=== PATIENT | male | born 1975 | race Caucasian/White ===

== ENCOUNTER 2020-08-01 08:57 | Emergency (ER) | payer MEDICAID, SELFPAY ==
[2020-08-01 09:03] VITALS: BP 95/66; PULSE 100; RESP 16; TEMP 36.8; O2SAT 96; BMI 28.5
--- NOTE | 2020-08-01 09:11 | PC.NURSE ---
pt now states he has pain to bilateral wrists and back of neck 04/10. Abrasions present on bilateral wrists. provider aware.
--- NOTE | 2020-08-01 09:13 | XR_ITS ---
EXAMINATION: XR CERVICAL SPINE CLINICAL INFORMATION: Trauma pain COMPARISON: None TECHNIQUE: 3 views of the cervical spine were obtained. FINDINGS: The lower cervical spine below the level of C6-C7 is obscured by overlying soft tissues of. Otherwise the vertebral bodies are normally aligned without fracture subluxation or dislocation or degenerative change. The surrounding soft tissues are normal. XR/XR cervical spine 3V IMPRESSION: Limited evaluation of the cervical spine for trauma. The lower cervical spine is obscured by overlying soft tissues. Consider repeat swimmer's lateral view to clear the lower cervical spine CT otherwise unremarkable
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
--- NOTE | 2020-08-01 09:39 | MHC.CARE ---
CARE Team spoke with Makeda about therapy treatment and detox services. He declined any services and refused to continue conversation about further treatment. He stated Just give the paper and leave walk out of the room.
--- NOTE | 2020-08-01 10:00 | PC.NURSE ---
Applied antibiotic ointment and bandages to open area on patient's right wrist.
== END 2020-08-01 10:06 | disposition home or self-care (01) ==
PROVIDERS: Emergency Provider Emergency Medicine
DX: S16.1XXA Strain of muscle, fascia and tendon at neck level, initial encounter (principal); S10.91XA Abrasion of unspecified part of neck, initial encounter; F14.10 Cocaine abuse, uncomplicated; F11.10 Opioid abuse, uncomplicated; X58.XXXA Exposure to other specified factors, initial encounter; Y93.9 Activity, unspecified; Y92.9 Unspecified place or not applicable; Y99.9 Unspecified external cause status; F17.200 Nicotine dependence, unspecified, uncomplicated; Z71.6 Tobacco abuse counseling; Z71.51 Drug abuse counseling and surveillance of drug abuser
CPT/HCPCS: 72040; 99283

== ENCOUNTER 2021-04-09 19:56 | Inpatient (IN) | payer OTHER, SELFPAY ==
[2021-04-09 21:02] VITALS: BMI 28.0
--- NOTE | 2021-04-09 21:57 | PC.ADMIT ---
Pt is a 45 year old male who presents to from [facility] ED at approx 20:09 on a CV status. Pt is covid - Utox+ for cocaine, THC, Heroin, fentanyl. Pt presents with suicidal ideation reporting i do drugs everyday until i Pt reports AH and reports voices are from a past relationship with girlfriend. Pt denied any outpt support services. Pt was transferred from [facility] to [facility]. Pt was evaluated by [facility]. Pt reported experiencing symptoms of depression and anxiety for a long time. Pt reported ongoing drug use and stated he did one bundle of heroin in the form of snorting, just last night. Pt reported using crack/cocaine four days ago. Dr. florez called for orders of admission.
[2021-04-10] MEDS: chlorproMAZINE HCl 100 MG TABLET PO (09:22)
--- NOTE | 2021-04-10 09:50 | HO.PSYADMNOT ---
HPI Chief Complaint: Bipolar Sources of Information: patient interviewed, chart reviewed and crisis/core team assessment reviewed HPI Subjective Notes: Orta Warning and Conditional Voluntary Narrative: Patient is a 45-year-old male with history of psychotic illness and substance abuse who presents for auditory hallucinations, moderate manic symptoms and is also in need of detox from opiates. Patient signed CV. Manager Motor knows patient from previous admissions. Patient is with moderately pressured speech but interruptible; he is intermittently irritable but also cooperative. He reports he has been off his medication for quite some time, he is not sure how long. He says about a month ago he got out of senior care. He denies any SI or HI. He does report auditory hallucinations and tries to explain it saying it comes from up there... [looks upward]... Not voices but it is a forced speech like God talking. it's hard to explain. During interview, patient intermittently looks aside to respond to internal stimuli, mumbling something under his breath; when done, he re-attends to the conversation. Patient has been using opiates but he is not sure how much. He would like methadone to help with withdrawal symptoms and will consider whether or not to get on it for maintenance medication. He says he was drinking over the past few weeks, but he is not exactly sure how much. He says it has been 2 days since his last drank any denies withdrawal symptoms and does not think he will get them. Patient tells travel writer he would like Thorazine 50 mg in the morning, Thorazine 200 mg at bedtime, trazodone at bedtime, Wellbutrin twice a day and does not want Trileptal. From past admissions, this medication regimen sounds pretty typical. Pharmacy did med reconciliation and found this regimen to be fairly close; apparently he was also getting gabapentin while in senior care, but patient did not ask for it and travel writer will not restart this medication now. Past Psychiatric History: Long history of psychiatric inpatient admissions History of detox from substance abuse Medical Evaluation Reviewed: Yes [facility] Medical History (Updated 04/11/21 @ 11:30 by Rome Wood MD) Alcohol abuse Opiate abuse, episodic Schizoaffective disorder, bipolar type Family History: Deferred for now Social History: Deferred for now Substance History: History of opioid and alcohol use Trauma History: Deferred for now Diagnostics Vital Signs (24Hr): Body Mass Index 28.0 Labs Labs: Medications from admitting hospital reviewed as was EKG which were grossly within normal limits. Meds/Allergies Meds Home Medications Acetaminophen (Acetaminophen 325 Mg Tablet) 650 mg PO Q6H PRN PRN Reason: Headache/Pain Mild Scale (1-3) Al Hydroxide/Mg Hydroxide (Magnesium Hydrox/Alum Hydrox 30 Ml Oral.Susp) 30 ml PO Q6H PRN PRN Reason: Heartburn/Nausea Bupropion HCl (Bupropion Hcl 100 Mg Tablet) 100 mg PO BID@0830,1430 [facility] Last Admin: 04/11/21 08:09 Dose: 100 mg Documented by: Chlorpromazine HCl (Chlorpromazine Hcl 25 Mg Tablet) 50 mg PO TID PRN PRN Reason: anxiety/agitation Chlorpromazine HCl (Chlorpromazine Hcl 25 Mg Tablet) 50 mg PO DAILY [facility] Last Admin: 04/11/21 09:59 Dose: 50 mg Documented by: Chlorpromazine HCl (Chlorpromazine Hcl 100 Mg Tablet) 200 mg PO BEDTIME [facility] Last Admin: 04/10/21 20:06 Dose: 200 mg Documented by: Lorazepam (Lorazepam 1 Mg Tablet) 1 mg PO TID [facility] Stop: 04/11/21 23:59 Last Admin: 04/11/21 11:08 Dose: 1 mg Documented by: Lorazepam (Lorazepam 1 Mg Tablet) 1 mg PO BID [facility] Stop: 04/13/21 23:59 Lorazepam (Lorazepam 1 Mg Tablet) 1 mg PO DAILY [facility] Stop: 04/14/21 23:59 Magnesium Hydroxide (Milk Of Magnesia 30 Ml Oral.Susp) 30 ml PO DAILY PRN PRN Reason: Constipation Methadone HCl (Methadone Hcl 5 Mg Tablet) 5 mg PO ONCE ONE Stop: 04/11/21 14:01 Methadone HCl (Methadone Hcl 1 Mg/0.1 Ml Oral.Conc) 15 mg PO ONCE ONE Stop: 04/12/21 09:01 Methadone HCl (Methadone Hcl 1 Mg/0.1 Ml Oral.Conc) 10 mg PO ONCE ONE Stop: 04/13/21 09:01 Methadone HCl (Methadone Hcl 5 Mg Tablet) 5 mg PO ONCE ONE Stop: 04/14/21 09:01 Naloxone HCl (Naloxone Hcl Nasal Take Home 4 Mg [place]) 4 mg NOSTRILALT ONCE ONE Stop: 04/12/21 09:01 Nicotine (Nicotine 21 Mg Patch.Td24) 21 mg TRANSDERMA DAILY PRN PRN Reason: nicotine cessation Nicotine Polacrilex (Nicotine Polacrilex 2 Mg Gum) 4 mg BUCCAL Q2H PRN PRN Reason: Nicotine Cravings Last Admin: 04/11/21 10:20 Dose: 4 mg Documented by: Pharmacy Consult (Consult Rx Perform Med Rec) 1 each MISCELLANE ONCE AMOR Trazodone HCl (Trazodone Hcl 50 Mg Tablet) 50 mg PO BEDTIME AMOR Last Admin: 04/10/21 20:06 Dose: 50 mg Documented by: Trazodone HCl (Trazodone Hcl 50 Mg Tablet) 50 mg PO BEDTIME PRN PRN Reason: continued insomnia Allergies Allergies Allergy/AdvReac Type Severity Reaction Status Date / Time cat dander [CATS] Allergy Unknown UNKNOWN Unverified 06/18/20 19:53 haloperidol [From HALDOL] Allergy Unknown UNKNOWN Unverified 06/18/20 19:53 olanzapine [From ZYPREXA] Allergy Unknown UNKNOWN Unverified 06/18/20 19:53 Penicillins [PENICILLINS] Allergy Unknown UNKNOWN Unverified 06/18/20 19:53 Mental Status Exam Mental Status Exam Narrative: Pt is alert and oriented; behavior is cooperative, friendly, but also irritable; patient is not in distress; dressed in casual attire with adequate hygiene; mood is described as good affect a intense, constricted, irritable, sometimes scowling; eye contact appropriate; Speech is moderately pressured, but normal volume and prosody; some mild psychomotor agitation; thought process is organized and goal directed. Thought content is on treatment and otherwise pertinent to relevant topics and without any delusional content, paranoid ideations or grandiosity expressed or able to be solicited; denies any SI/HI. Intermittent Self-dialoging ant internally preoccupied; he reports AH; Patients insight and judgment appear intact. Assessment & Plan Assessment & Plan (1) Schizoaffective disorder, bipolar type: Status: Acute Code(s): F25.0 - Schizoaffective disorder, bipolar type (2) Opiate abuse, episodic: Status: Acute Code(s): F11.10 - Opioid abuse, uncomplicated (3) Alcohol abuse: Status: Acute Code(s): F10.10 - Alcohol abuse, uncomplicated Assessment and Plan: IMPRESSION: Patient is a 45-year-old male with history of psychotic illness and substance abuse who presents for auditory hallucinations, moderate manic symptoms and is also in need of detox from opiates. Patient signed CV. Patient presents with moderate manic symptoms, pressured speech, having not slept in days to weeks, relapsing with opiates and alcohol. Currently denies any SI or HI but is clearly having intrusive psychotic symptoms of auditory hallucinations. Patient also in need of detox and will start him on methadone taper. 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 Reports recent alcohol abuse but not sure how much and denies alcohol symptoms. Will monitor this and consider Ativan taper. Will restart medications the patient has been on in the past. PLAN: Admit for treatment for psychotic symptoms and withdrawal Patient on CV Q 15 minutes checks for safety Will start methadone taper, consulted with Kathy Mendoza for recommendations Start Thorazine 50 in the morning Start Thorazine 200 mg at bedtime Add Thorazine 50 mg p.r.n. Start Wellbutrin 100 mg b.i.d. Trazodone 50 mg with repeat Patient does not want Trileptal which will not be restarted; he was on gabapentin while in senior care but is not asking for now and travel writer will not started as this medication is problematic when combined with substance abuse Patient educated on: diagnosis Informed Consent: understands Reason for continued inpatient stay Substantial Risk for: rapid decompensation
[2021-04-10] MEDS: Nicotine Polacrilex 2 MG GUM 4 MG BUCCAL ×4 (10:10→20:00)
[2021-04-10] MEDS: buPROPion HCL 100 MG TABLET PO ×2 (10:59→14:32)
[2021-04-10 15:50] VITALS: BP 129/80; PULSE 85; TEMP 36.6
[2021-04-10] MEDS: chlorproMAZINE HCl 100 MG TABLET 200 MG PO (20:06)
[2021-04-10] MEDS: traZODone HCL 50 MG TABLET PO (20:06)
--- NOTE | 2021-04-11 | ECG_ITS ---
Test Reason : QTc monitoring Blood Pressure : / mmHG Vent. Rate : 060 BPM Atrial Rate : 060 BPM P-R Int : 134 ms QRS Dur : 088 ms QT Int : 424 ms P-R-T Axes : 061 042 032 degrees QTc Int : 424 ms Sinus rhythm with marked sinus arrhythmia Otherwise normal ECG No previous ECGs available Referred By: Rome Wood Electronically Signed By:Kwabena Rossi
[2021-04-11] MEDS: buPROPion HCL 100 MG TABLET PO ×2 (08:09→14:05)
[2021-04-11 09:00] VITALS: BP 128/84; PULSE 108; RESP 18; TEMP 36.5; O2SAT 99
[2021-04-11] MEDS: chlorproMAZINE HCl 25 MG TABLET 50 MG PO (09:59)
[2021-04-11] MEDS: Nicotine Polacrilex 2 MG GUM 4 MG BUCCAL ×3 (10:20→16:31)
--- NOTE | 2021-04-11 11:07 | P.PNPSI_ITS ---
Subjective Subjective Date of Service: 04/11/21 Reason For Visit: Bipolar Interim History: Patient up and about this morning. He said he slept well last night and that the methadone is helping withdrawal but would like another 5 mg today and start 15 mg tomorrow to which selling underwriter agreed; patient said he did not think he would have any alcohol withdrawal symptoms but says he is feeling it somewhat and could he have Ativan, again selling underwriter agreed to start a taper. Otherwise patient feels his medication regimen is adequate and does not want other changes at this time. He denies any SI or HI. During brief lapses in the conversation, patient looked aside to attend to a self dialogue as he is intermittently internally preoccupied. Patient is ambivalent about his goals, sometimes saying he wants to leave soon, other times saying he wants a program. He is also continuing to debate whether not he wants to get on methadone continually. Staff reports patient intermittently irritable, but overall in appropriate behavioral control. denies med side effects Though cooperative, patient seems only to tolerate discussion on topics he is interested in; as he remains intermittently irritable and in withdrawal, selling underwriter did not further review patient's psychiatric history but will defer that to primary team and when patient is feeling a little more calm and stable Mental Status Exam Mental Status Exam Narrative: Pt is alert and oriented; behavior is cooperative, friendly; patient is not in distress; dressed in casual attire with adequate hygiene; mood is described as good affect a little intense, constricted; eye contact appropriate; Speech is moderately pressured, but normal volume and prosody; some mild psychomotor agitation; thought process is organized, and goal directed. Thought content is on treatment and otherwise pertinent to relevant topics and without any delusional content, paranoid ideations or grandiosity expressed or able to be solicited; denies any SI/HI. Intermittent Self-dialoging, internally preoccupied; he reports AH; Patients insight and judgment appear intact. Diagnostics Vital Signs (24Hr): Vital Signs - 24 hr 04/10/21 15:50 Temperature 97.9 F Pulse Rate 85 Blood Pressure 129/80 Body Mass Index 28.0 Medications Medications Current Medications Generic Name Dose Route Start Last Admin Trade Name Freq PRN Reason Stop Dose Admin Acetaminophen 650 mg 04/09/21 21:39 Acetaminophen 325 Mg Tablet PO Q6H PRN Headache/Pain Mild Scale (1-3) Al Hydroxide/Mg Hydroxide 30 ml 04/09/21 21:39 Magnesium Hydrox/Alum Hydrox 30 Ml Oral.Susp PO Q6H PRN Heartburn/Nausea Bupropion HCl 100 mg 04/10/21 10:08 04/11/21 08:09 Bupropion Hcl 100 Mg Tablet PO 100 mg BID@0830,1430 AMOR Administration Chlorpromazine HCl 50 mg 04/09/21 21:39 Chlorpromazine Hcl 25 Mg Tablet PO TID PRN anxiety/agitation Chlorpromazine HCl 50 mg 04/11/21 09:00 04/11/21 09:59 Chlorpromazine Hcl 25 Mg Tablet PO 50 mg DAILY AMOR Administration Chlorpromazine HCl 200 mg 04/10/21 21:00 04/10/21 20:06 Chlorpromazine Hcl 100 Mg Tablet PO 200 mg BEDTIME AMOR Administration Lorazepam 1 mg 04/11/21 10:55 Lorazepam 1 Mg Tablet PO 04/11/21 23:59 TID AMOR Lorazepam 1 mg 04/12/21 09:00 Lorazepam 1 Mg Tablet PO 04/13/21 23:59 BID AMOR Lorazepam 1 mg 04/14/21 09:00 Lorazepam 1 Mg Tablet PO 04/14/21 23:59 DAILY [facility] Magnesium Hydroxide 30 ml 04/09/21 21:39 Milk Of Magnesia 30 Ml Oral.Susp PO DAILY PRN Constipation Methadone HCl 5 mg 04/11/21 14:00 Methadone Hcl 5 Mg Tablet PO 04/11/21 14:01 ONCE ONE Methadone HCl 15 mg 04/12/21 09:00 Methadone Hcl 1 Mg/0.1 Ml Oral.Conc PO 04/12/21 23:59 DAILY [facility] Methadone HCl 10 mg 04/13/21 09:00 Methadone Hcl 10 Mg Tablet PO 04/13/21 23:59 DAILY [facility] Methadone HCl 5 mg 04/14/21 09:00 Methadone Hcl 5 Mg Tablet PO 04/14/21 23:59 DAILY AMOR Naloxone HCl 4 mg 04/12/21 09:00 Naloxone Hcl Nasal Take Home 4 Mg [place] NOSTRILALT 04/12/21 09:01 ONCE ONE Nicotine 21 mg 04/09/21 21:39 Nicotine 21 Mg Patch.Td24 TRANSDERMA DAILY PRN nicotine cessation Nicotine Polacrilex 4 mg 04/09/21 21:39 04/11/21 10:20 Nicotine Polacrilex 2 Mg Gum BUCCAL 4 mg Q2H PRN Administration Nicotine Cravings Pharmacy Consult 1 each 04/09/21 21:45 Consult Rx Perform Med Rec MISCELLANE ONCE AMOR Trazodone HCl 50 mg 04/10/21 21:00 04/10/21 20:06 Trazodone Hcl 50 Mg Tablet PO 50 mg BEDTIME AMOR Administration Trazodone HCl 50 mg 04/10/21 10:10 Trazodone Hcl 50 Mg Tablet PO BEDTIME PRN continued insomnia Allergies Allergies Allergy/AdvReac Type Severity Reaction Status Date / Time cat dander [CATS] Allergy Unknown UNKNOWN Unverified 06/18/20 19:53 haloperidol [From HALDOL] Allergy Unknown UNKNOWN Unverified 06/18/20 19:53 olanzapine [From ZYPREXA] Allergy Unknown UNKNOWN Unverified 06/18/20 19:53 Penicillins [PENICILLINS] Allergy Unknown UNKNOWN Unverified 06/18/20 19:53 Assessment & Plan Assessment & Plan (1) Alcohol abuse: Status: Acute Code(s): F10.10 - Alcohol abuse, uncomplicated (2) Opiate abuse, episodic: Status: Acute Code(s): F11.10 - Opioid abuse, uncomplicated (3) Schizoaffective disorder, bipolar type: Status: Acute Code(s): F25.0 - Schizoaffective disorder, bipolar type Assessment and Plan: IMPRESSION: Patient is a 45-year-old male with history of psychotic illness and substance abuse who presents for auditory hallucinations, moderate manic symptoms and is also in need of detox from opiates. Patient signed CV. Patient presents with moderate manic symptoms, pressured speech, having not slept in days to weeks, relapsing with opiates and alcohol. Currently denies any SI or HI but is clearly having intrusive psychotic symptoms of auditory hallucinations. Patient also in need of detox and will start him on methadone taper. 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 Reports recent alcohol abuse but not sure how much and denies alcohol symptoms. Will monitor this and consider Ativan taper. Restarted medications the patient has been on in the past. Patient reports he feels some alcohol withdrawal symptoms and would like Ativan; as patient also has psychotic illness and is withdrawing from opiates, have put in Ativan taper. This will not be continued on discharge PLAN: Admit for treatment for psychotic symptoms and withdrawal Patient on CV Q 15 minutes checks for safety Will get EKG to assess QTC, given on both antipsychotic and methadone ordered labs for monday including HBA1C and lipid panel since pt on antipsycotics Ativan taper for mild alcohol withdrawal symptoms methadone taper, consulted with Kathy Mendoza for recommendations Continue Thorazine 50 in the morning Continue Thorazine 200 mg at bedtime ContinueThorazine 50 mg p.r.n. Continue Wellbutrin 100 mg b.i.d. Trazodone 50 mg with repeat Patient does not want Trileptal which will not be restarted; he was on gabapentin while in [facility] but is not asking for now and selling underwriter will not started as this medication is problematic when combined with substance abuse Greater than 50% of the session was spent on counseling and/or coordination of care Reason for contiued inpatient stay Substantial Risk for: rapid decompensation
[2021-04-11] MEDS: LORazepam 1 MG TABLET PO ×3 (11:08→20:41)
[2021-04-11] MEDS: methADONE HCl 5 MG TABLET PO (14:06)
[2021-04-11] MEDS: Magnesium Hydrox/Alum Hydrox 30 ML ORAL.SUSP PO (15:19)
[2021-04-11 15:50] VITALS: BP 149/93; PULSE 89; TEMP 35.9
[2021-04-11] MEDS: traZODone HCL 50 MG TABLET PO (20:41)
[2021-04-11] MEDS: chlorproMAZINE HCl 100 MG TABLET 200 MG PO (20:41)
[2021-04-12 06:42] VITALS: BP 126/70; PULSE 21; RESP 16; TEMP 36.4; O2SAT 96
[2021-04-12 08:10] LABS: MANUAL DIFF FLAG NO
[2021-04-12 08:12] LABS: Basophils Percent Auto 0.3 % (0-2); Eosinophils Absolute Auto 0.4 X10*3/uL (0.0-0.4); Eosinophils Percent Auto 3.9 % (0-4); Hematocrit 40.8 % (42-52); Hemoglobin 13.2 g/dl (14.0-18.0); Imm Gran Abs Auto 0.03 X10*3/uL (0.00-0.03); Imm Gran Pct Auto 0.3 % (0.0-0.4); Lymphocytes Absolute Auto 2.7 X10*3/uL (1.2-4.9); Mean Corpuscular HGB Conc 32.4 g/dl (31.0-36.0); Mean Corpuscular Hemoglobin 27.7 pg (27.0-33.0); Mean Corpuscular Volume 85.5 fL (80-98); Mean Platelet Volume 9.9 fL (9.4-12.4); Monocytes Absolute Auto 0.9 X10*3/uL (0.1-1.2); Monocytes Percent Auto 9.9 % (2-11); Neutrophils Absolute Auto 4.9 X10*3/uL (2.0-8.3); Neutrophils Percent Auto 55.6 % (45-73); Platelet Count 265 X10*3/uL (160-400); Red Blood Count 4.77 X10*6/uL (4.60-5.80); Red Cell Distribution Width 13.6 % (11.0-16.0); White Blood Count 8.9 X10*3/uL (4.8-10.8)
[2021-04-12] MEDS: Naloxone HCl Nasal TAKE HOME 4 MG SPRAY NOSTRILALT (08:20)
[2021-04-12] MEDS: buPROPion HCL 100 MG TABLET PO ×2 (08:23→14:04)
[2021-04-12] MEDS: chlorproMAZINE HCl 25 MG TABLET 50 MG PO (08:24)
[2021-04-12] MEDS: LORazepam 1 MG TABLET PO ×2 (08:24→20:07)
[2021-04-12] MEDS: Nicotine Polacrilex 2 MG GUM 4 MG BUCCAL ×6 (08:26→21:02)
[2021-04-12 08:52] LABS: Estimated Average Glucose 111 mg/dL; Hemoglobin A1c % 5.5 %
[2021-04-12 09:02] LABS: Cholesterol 152 mg/dL; HDL Cholesterol 53 mg/dL; LDL Cholesterol Calculated 65 mg/dl; Triglycerides 173 mg/dL
--- NOTE | 2021-04-12 15:05 | P.PNPSI_ITS ---
Subjective Subjective Date of Service: 04/12/21 Reason For Visit: Bipolar Interim History: Patient reports that mood is good. no SI or HI: feels detox is being well handled with methadone and Ativan. Still not sure about whether not to get on maintenance medication. Patient says he is eating well and sleeping fine. He says he has keeping himself in control, handling any troublesome thoughts by practicing positive affirmations which he learned at a past program. Pt said talk to you later doc and sped off to cafeteria to eat with peers. Mental Status Exam Mental Status Exam Narrative: Pt is alert and oriented; behavior is cooperative, friendly; patient is not in distress; dressed in casual attire with adequate hygiene; mood is described as good affect a little constricted; eye contact appropriate; Speech remains moderately pressured, but normal volume and prosody; some mild psychomotor agitation; thought process is organized, and goal directed. Thought content is on treatment and otherwise pertinent to relevant topics and without any delusional content, paranoid ideations or grandiosity expressed or able to be solicited; denies any SI/HI. Intermittent Self-dialoguing, internally preoccupied; he reports AH; Patients insight and judgment appear intact. Diagnostics Vital Signs (24Hr): Vital Signs - 24 hr 04/11/21 15:50 04/12/21 06:42 Temperature 96.7 F L 97.6 F Pulse Rate 89 21 L Respiratory Rate 16 Blood Pressure 149/93 H 126/70 Pulse Oximetry 96 Body Mass Index 28.0 Labs Results: 04/12/21 08:00 Labs: Laboratory Results - last 48 hr 04/12/21 04/12/21 04/12/21 08:00 08:00 08:00 WBC 8.9 RBC 4.77 Hgb 13.2 L Hct 40.8 L MCV 85.5 MCH 27.7 MCHC 32.4 RDW 13.6 Plt Count 265 MPV 9.9 Immature Gran % (Auto) 0.3 Neut % (Auto) 55.6 Lymph % (Auto) 30.0 [place] % (Auto) 9.9 Eos % (Auto) 3.9 Baso % (Auto) 0.3 Lymph # (Auto) 2.7 [place] # (Auto) 0.9 Eos # (Auto) 0.4 Baso # (Auto) 0.0 Abs Immat Gran (auto) 0.03 Absolute Neuts (auto) 4.9 Absolute Nucleated RBC 0.000 Nucleated RBC % (auto) 0.0 Estimat Average Glucose 111 Hemoglobin A1c % 5.5 Triglycerides 173 Cholesterol 152 LDL Cholesterol, Calc 65 HDL Cholesterol 53 Medications Medications Current Medications Generic Name Dose Route Start Last Admin Trade Name Freq PRN Reason Stop Dose Admin Acetaminophen 650 mg 04/09/21 21:39 Acetaminophen 325 Mg Tablet PO Q6H PRN Headache/Pain Mild Scale (1-3) Al Hydroxide/Mg Hydroxide 30 ml 04/09/21 21:39 04/11/21 15:19 Magnesium Hydrox/Alum Hydrox 30 Ml Oral.Susp PO 30 ml Q6H PRN Administration Heartburn/Nausea Bupropion HCl 100 mg 04/10/21 10:08 04/12/21 14:04 Bupropion Hcl 100 Mg Tablet PO 100 mg BID@0830,1430 AMOR Administration Chlorpromazine HCl 50 mg 04/09/21 21:39 Chlorpromazine Hcl 25 Mg Tablet PO TID PRN anxiety/agitation Chlorpromazine HCl 50 mg 04/11/21 09:00 04/12/21 08:24 Chlorpromazine Hcl 25 Mg Tablet PO 50 mg DAILY AMOR Administration Chlorpromazine HCl 200 mg 04/10/21 21:00 04/11/21 20:41 Chlorpromazine Hcl 100 Mg Tablet PO 200 mg BEDTIME AMOR Administration Lorazepam 1 mg 04/12/21 09:00 04/12/21 08:24 Lorazepam 1 Mg Tablet PO 04/13/21 23:59 1 mg BID AMOR Administration Lorazepam 1 mg 04/14/21 09:00 Lorazepam 1 Mg Tablet PO 04/14/21 23:59 DAILY AMOR Magnesium Hydroxide 30 ml 04/09/21 21:39 Milk Of Magnesia 30 Ml Oral.Susp PO DAILY PRN Constipation Methadone HCl 10 mg 04/13/21 09:00 Methadone Hcl 1 Mg/0.1 Ml Oral.Conc PO 04/13/21 09:01 ONCE ONE Methadone HCl 5 mg 04/14/21 09:00 Methadone Hcl 5 Mg Tablet PO 04/14/21 09:01 ONCE ONE Nicotine 21 mg 04/09/21 21:39 Nicotine 21 Mg Patch.Td24 TRANSDERMA DAILY PRN nicotine cessation Nicotine Polacrilex 4 mg 04/09/21 21:39 04/12/21 14:04 Nicotine Polacrilex 2 Mg Gum BUCCAL 4 mg Q2H PRN Administration Nicotine Cravings Pharmacy Consult 1 each 04/09/21 21:45 Consult Rx Perform Med Rec MISCELLANE ONCE AMOR Trazodone HCl 50 mg 04/10/21 21:00 04/11/21 20:41 Trazodone Hcl 50 Mg Tablet PO 50 mg BEDTIME AMOR Administration Trazodone HCl 50 mg 04/10/21 10:10 Trazodone Hcl 50 Mg Tablet PO BEDTIME PRN continued insomnia Allergies Allergies Allergy/AdvReac Type Severity Reaction Status Date / Time cat dander [CATS] Allergy Unknown UNKNOWN Unverified 06/18/20 19:53 haloperidol [From HALDOL] Allergy Unknown UNKNOWN Unverified 06/18/20 19:53 olanzapine [From ZYPREXA] Allergy Unknown UNKNOWN Unverified 06/18/20 19:53 Penicillins [PENICILLINS] Allergy Unknown UNKNOWN Unverified 06/18/20 19:53 Assessment & Plan Assessment & Plan (1) Alcohol abuse: Status: Acute Code(s): F10.10 - Alcohol abuse, uncomplicated (2) Opiate abuse, episodic: Status: Acute Code(s): F11.10 - Opioid abuse, uncomplicated (3) Schizoaffective disorder, bipolar type: Status: Acute Code(s): F25.0 - Schizoaffective disorder, bipolar type Assessment and Plan: IMPRESSION: Patient is a 45-year-old male with history of psychotic illness and substance abuse who presents for auditory hallucinations, moderate manic symptoms and is also in need of detox from opiates. Patient signed CV. Patient presents with moderate manic symptoms, pressured speech, having not slept in days to weeks, relapsing with opiates and alcohol. Currently denies any SI or HI but is clearly having intrusive psychotic symptoms of auditory hallucinations. Patient also in need of detox and will start him on methadone taper. 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 Reports recent alcohol abuse but not sure how much and denies alcohol symptoms. Will monitor this and consider Ativan taper. Restarted medications the patient has been on in the past. Patient reports he feels some alcohol withdrawal symptoms and would like Ativan; as patient also has psychotic illness and is withdrawing from opiates, have put in Ativan taper. This will not be continued on discharge patient remains with some auditory hallucinations as medications are just being started; he is also continuing to need medications for withdrawal symptoms which cannot be done on an outpatient basis and remains a barrier to discharge. PLAN: Admit for treatment for psychotic symptoms and withdrawal Patient on CV Q 15 minutes checks for safety EKG on 04/11: QTC wnl HBA1C Wnl lipid panel wnl Ativan taper for alcohol withdrawal symptoms methadone taper, consulted with Kathy Mendoza for recommendations Continue Thorazine 50 in the morning Continue Thorazine 200 mg at bedtime ContinueThorazine 50 mg p.r.n. Continue Wellbutrin 100 mg b.i.d. Trazodone 50 mg with repeat Patient does not want Trileptal which will not be restarted; he was on gabapentin while in detention but is not asking for now and video games storywriter will not started as this medication is problematic when combined with substance abuse Greater than 50% of the session was spent on counseling and/or coordination of care Reason for contiued inpatient stay Substantial Risk for: rapid decompensation
--- NOTE | 2021-04-12 15:43 | MHC.RECOVRN ---
T/w met with pt to f/u regarding methadone taper. Pt received 15 mg this morning and denies withdrawal symptoms. Pt will receive 10 mg tomorrow, 5 mg on Monday. Pt is not looking to continue methadone after d/c. Pt would like to go to [facility]. Pt encouraged to notify SW as soon as possible as it may take some time to secure a bed. T/w available as needed.
[2021-04-12 18:15] VITALS: BP 139/90; PULSE 79; TEMP 36.2
[2021-04-12] MEDS: traZODone HCL 50 MG TABLET PO (20:58)
[2021-04-12] MEDS: chlorproMAZINE HCl 100 MG TABLET 200 MG PO (20:58)
[2021-04-13] MEDS: buPROPion HCL 100 MG TABLET PO ×2 (08:54→13:36)
--- NOTE | 2021-04-13 08:54 | P.PNPSI_ITS ---
Subjective Subjective Date of Service: 04/14/21 Reason For Visit: Bipolar Interim History: Patient reports doing better in that he is less depressed, more hopeful about his future. He denies SI/HI. he also denies VH/AH and does not appear internally preoccupied. He has been visible in the unit and has attended assigned groups. No behavioral concerns. Pt reports fungal infection on both feet- utilizing topicl ointment but reports in past has taken PO lamisil with good effect Mental Status Exam Mental Status Exam Narrative: Appearance: casually groomed, fair hygiene, in NAD Behavior: calm, cooperative Psychomotor: no agitation or retardation noted Speech: clear, normal rate/rhythm/volume, spontaneous TP: linear TC: no signs of psychosis, looking forward to continue OP tx. Mood: good Affect:bright, non labile SI:denies HI:denies AH/VH:none Delusions:none Insight/judgment:fair x 2. Memory/cog: alert, oriented x 3. grossly intact to conversational testing. Diagnostics Vital Signs (24Hr): Vital Signs - 24 hr 04/13/21 18:00 Temperature 97 F Pulse Rate 85 Blood Pressure 123/75 Pulse Oximetry 99 Body Mass Index 28.0 Labs Results: 04/12/21 08:00 Labs: Laboratory Results - last 48 hr 04/12/21 08:00 Triglycerides 173 Cholesterol 152 LDL Cholesterol, Calc 65 HDL Cholesterol 53 Medications Medications Current Medications Generic Name Dose Route Start Last Admin Trade Name Freq PRN Reason Stop Dose Admin Acetaminophen 650 mg 04/09/21 21:39 Acetaminophen 325 Mg Tablet PO Q6H PRN Headache/Pain Mild Scale (1-3) Al Hydroxide/Mg Hydroxide 30 ml 04/09/21 21:39 04/11/21 15:19 Magnesium Hydrox/Alum Hydrox 30 Ml Oral.Susp PO 30 ml Q6H PRN Administration Heartburn/Nausea Albuterol Sulfate 1 puff 04/13/21 15:07 04/13/21 18:25 Albuterol Sulfate 90 Mcg 8 Gm Inhaler INHALE 1 puff Q4H PRN Administration SOB/wheezing Benzocaine 1 appl 04/13/21 15:08 04/13/21 18:21 Benzocaine 10 % Oral Gel 9 Gm Tube MUCOUS MEM 1 appl TID PRN Administration oral pain Protocol Bupropion HCl 100 mg 04/10/21 10:08 04/14/21 08:32 Bupropion Hcl 100 Mg Tablet PO 100 mg BID@0830,1430 AMOR Administration Chlorpromazine HCl 50 mg 04/09/21 21:39 Chlorpromazine Hcl 25 Mg Tablet PO TID PRN anxiety/agitation Chlorpromazine HCl 50 mg 04/11/21 09:00 04/14/21 08:33 Chlorpromazine Hcl 25 Mg Tablet PO 50 mg DAILY AMOR Administration Chlorpromazine HCl 200 mg 04/10/21 21:00 04/13/21 20:18 Chlorpromazine Hcl 100 Mg Tablet PO 200 mg BEDTIME AMOR Administration Lorazepam 1 mg 04/14/21 09:00 04/14/21 08:32 Lorazepam 1 Mg Tablet PO 04/14/21 23:59 1 mg DAILY AMOR Administration Magnesium Hydroxide 30 ml 04/09/21 21:39 Milk Of Magnesia 30 Ml Oral.Susp PO DAILY PRN Constipation Methadone HCl 5 mg 04/14/21 09:00 04/14/21 08:32 Methadone Hcl 5 Mg Tablet PO 04/14/21 09:01 5 mg ONCE ONE Administration Nicotine 21 mg 04/09/21 21:39 Nicotine 21 Mg Patch.Td24 TRANSDERMA DAILY PRN nicotine cessation Nicotine Polacrilex 4 mg 04/09/21 21:39 04/14/21 08:34 Nicotine Polacrilex 2 Mg Gum BUCCAL 4 mg Q2H PRN Administration Nicotine Cravings Pharmacy Consult 1 each 04/09/21 21:45 Consult Rx Perform Med Rec MISCELLANE ONCE AMOR Trazodone HCl 50 mg 04/10/21 21:00 04/13/21 20:19 Trazodone Hcl 50 Mg Tablet PO 50 mg BEDTIME AMOR Administration Trazodone HCl 50 mg 04/10/21 10:10 Trazodone Hcl 50 Mg Tablet PO BEDTIME PRN continued insomnia Allergies Allergies Allergy/AdvReac Type Severity Reaction Status Date / Time cat dander [CATS] Allergy Unknown UNKNOWN Unverified 06/18/20 19:53 haloperidol [From HALDOL] Allergy Unknown UNKNOWN Unverified 06/18/20 19:53 olanzapine [From ZYPREXA] Allergy Unknown UNKNOWN Unverified 06/18/20 19:53 Penicillins [PENICILLINS] Allergy Unknown UNKNOWN Unverified 06/18/20 19:53 Assessment & Plan Assessment & Plan (1) Alcohol abuse: Status: Acute Code(s): F10.10 - Alcohol abuse, uncomplicated (2) Opiate abuse, episodic: Status: Acute Code(s): F11.10 - Opioid abuse, uncomplicated (3) Schizoaffective disorder, bipolar type: Status: Acute Code(s): F25.0 - Schizoaffective disorder, bipolar type Assessment and Plan: IMPRESSION: Patient is a 45-year-old male with history of psychotic illness and substance abuse who presents for auditory hallucinations, moderate manic symptoms and is also in need of detox from opiates. Patient signed CV. Patient presents with moderate manic symptoms, pressured speech, having not slept in days to weeks, relapsing with opiates and alcohol. Currently denies any SI or HI but is clearly having intrusive psychotic symptoms of auditory hallucinations. Patient also in need of detox and will start him on methadone taper. 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 Reports recent alcohol abuse but not sure how much and denies alcohol symptoms. Will monitor this and consider Ativan taper. Restarted medications the patient has been on in the past. Continue per primary treatment team: PLAN: Admit for treatment for psychotic symptoms and withdrawal Patient on CV Q 15 minutes checks for safety EKG on 04/11: QTC wnl HBA1C Wnl lipid panel wnl Ativan taper for alcohol withdrawal symptoms methadone taper, consulted with Kathy Mendoza for recommendations Continue Thorazine 50 in the morning Continue Thorazine 200 mg at bedtime ContinueThorazine 50 mg p.r.n. Continue Wellbutrin 100 mg b.i.d. Trazodone 50 mg with repeat Patient does not want Trileptal which will not be restarted; he was on gabape ntin while in retirement but is not asking for now and adjusto writer operator will not started as this medication is problematic when combined with substance abuse Greater than 50% of the session was spent on counseling and/or coordination of care Reason for contiued inpatient stay Substantial Risk for: harm to self
[2021-04-13] MEDS: chlorproMAZINE HCl 25 MG TABLET 50 MG PO (08:55)
[2021-04-13] MEDS: LORazepam 1 MG TABLET PO ×2 (08:55→20:19)
[2021-04-13] MEDS: Nicotine Polacrilex 2 MG GUM 4 MG BUCCAL ×5 (09:27→18:55)
[2021-04-13 18:00] VITALS: BP 123/75; PULSE 85; TEMP 36.1; O2SAT 99
[2021-04-13] MEDS: Albuterol Sulfate 90 MCG 8 GM INHALER 1 PUFF INHALE (18:25)
[2021-04-13] MEDS: chlorproMAZINE HCl 100 MG TABLET 200 MG PO (20:18)
[2021-04-13] MEDS: traZODone HCL 50 MG TABLET PO (20:19)
[2021-04-14] MEDS: LORazepam 1 MG TABLET PO (08:32)
[2021-04-14] MEDS: methADONE HCl 5 MG TABLET PO (08:32)
[2021-04-14] MEDS: buPROPion HCL 100 MG TABLET PO ×2 (08:32→13:36)
[2021-04-14] MEDS: chlorproMAZINE HCl 25 MG TABLET 50 MG PO (08:33)
[2021-04-14] MEDS: Nicotine Polacrilex 2 MG GUM 4 MG BUCCAL ×6 (08:34→21:12)
[2021-04-14 15:45] VITALS: BP 113/70; PULSE 99; TEMP 36.4
--- NOTE | 2021-04-14 16:27 | P.PNPSI_ITS ---
Subjective Subjective Date of Service: 04/14/21 Reason For Visit: Bipolar Interim History: patient reports that his mood is better, no SI, auditory hallucinations remain but are manageable. Patient still intermittently self dialogue. Patient reports that his brain does feel somewhat wired and would like to continue with benzo just while he is on the unit. He reports fungal infection on his bilateral feet and could he get some medication for this. Mental Status Exam Mental Status Exam Narrative: Appearance: casually groomed, fair hygiene, in NAD Behavior: calm, cooperative Psychomotor: no agitation or retardation noted Speech: clear, normal rate/rhythm/volume, spontaneous TP: linear TC: no signs of psychosis, looking forward to continue OP tx. Mood: good Affect:bright, non labile SI:denies HI:denies AH/VH:present Delusions:none Insight/judgment:fair Memory/cog: alert, oriented x 3. grossly intact to conversational testing. Diagnostics Vital Signs (24Hr): Vital Signs - 24 hr 04/13/21 18:00 Temperature 97 F Pulse Rate 85 Blood Pressure 123/75 Pulse Oximetry 99 Body Mass Index 28.0 Labs Results: 04/12/21 08:00 Medications Medications Current Medications Generic Name Dose Route Start Last Admin Trade Name Freq PRN Reason Stop Dose Admin Acetaminophen 650 mg 04/09/21 21:39 Acetaminophen 325 Mg Tablet PO Q6H PRN Headache/Pain Mild Scale (1-3) Al Hydroxide/Mg Hydroxide 30 ml 04/09/21 21:39 04/11/21 15:19 Magnesium Hydrox/Alum Hydrox 30 Ml Oral.Susp PO 30 ml Q6H PRN Administration Heartburn/Nausea Albuterol Sulfate 1 puff 04/13/21 15:07 04/13/21 18:25 Albuterol Sulfate 90 Mcg 8 Gm Inhaler INHALE 1 puff Q4H PRN Administration SOB/wheezing Benzocaine 1 appl 04/13/21 15:08 04/14/21 10:45 Benzocaine 10 % Oral Gel 9 Gm Tube MUCOUS MEM 1 appl TID PRN Administration oral pain Protocol Bupropion HCl 100 mg 04/10/21 10:08 04/14/21 13:36 Bupropion Hcl 100 Mg Tablet PO 100 mg BID@0830,1430 AMOR Administration Chlorpromazine HCl 50 mg 04/09/21 21:39 Chlorpromazine Hcl 25 Mg Tablet PO TID PRN anxiety/agitation Chlorpromazine HCl 50 mg 04/11/21 09:00 04/14/21 08:33 Chlorpromazine Hcl 25 Mg Tablet PO 50 mg DAILY AMOR Administration Chlorpromazine HCl 200 mg 04/10/21 21:00 04/13/21 20:18 Chlorpromazine Hcl 100 Mg Tablet PO 200 mg BEDTIME AMOR Administration Lorazepam 1 mg 04/14/21 09:00 04/14/21 08:32 Lorazepam 1 Mg Tablet PO 04/14/21 23:59 1 mg DAILY AMOR Administration Magnesium Hydroxide 30 ml 04/09/21 21:39 Milk Of Magnesia 30 Ml Oral.Susp PO DAILY PRN Constipation Nicotine 21 mg 04/09/21 21:39 Nicotine 21 Mg Patch.Td24 TRANSDERMA DAILY PRN nicotine cessation Nicotine Polacrilex 4 mg 04/09/21 21:39 04/14/21 15:55 Nicotine Polacrilex 2 Mg Gum BUCCAL 4 mg Q2H PRN Administration Nicotine Cravings Pharmacy Consult 1 each 04/09/21 21:45 Consult Rx Perform Med Rec MISCELLANE ONCE AMOR Trazodone HCl 50 mg 04/10/21 21:00 04/13/21 20:19 Trazodone Hcl 50 Mg Tablet PO 50 mg BEDTIME AMOR Administration Trazodone HCl 50 mg 04/10/21 10:10 Trazodone Hcl 50 Mg Tablet PO BEDTIME PRN continued insomnia Allergies Allergies Allergy/AdvReac Type Severity Reaction Status Date / Time cat dander [CATS] Allergy Unknown UNKNOWN Unverified 06/18/20 19:53 haloperidol [From HALDOL] Allergy Unknown UNKNOWN Unverified 06/18/20 19:53 olanzapine [From ZYPREXA] Allergy Unknown UNKNOWN Unverified 06/18/20 19:53 Penicillins [PENICILLINS] Allergy Unknown UNKNOWN Unverified 06/18/20 19:53 Assessment & Plan Assessment & Plan (1) Alcohol abuse: Status: Acute Code(s): F10.10 - Alcohol abuse, uncomplicated (2) Opiate abuse, episodic: Status: Acute Code(s): F11.10 - Opioid abuse, uncomplicated (3) Schizoaffective disorder, bipolar type: Status: Acute Code(s): F25.0 - Schizoaffective disorder, bipolar type Assessment and Plan: IMPRESSION: Patient is a 45-year-old male with history of psychotic illness and substance abuse who presents for auditory hallucinations, moderate manic symptoms and is also in need of detox from opiates. Patient signed CV. Patient presents with moderate manic symptoms, pressured speech, having not slept in days to weeks, relapsing with opiates and alcohol. Currently denies any SI or HI but is clearly having intrusive psychotic symptoms of auditory hallucinations. Patient also in need of detox and will start him on methadone taper. 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 Reports recent alcohol abuse but not sure how much and denies alcohol symptoms. Will monitor this and consider Ativan taper. Restarted medications the patient has been on in the past. Continue per primary treatment team: PLAN: Admit for treatment for psychotic symptoms and withdrawal Patient on CV Q 15 minutes checks for safety EKG on 04/11: QTC wnl HBA1C Wnl lipid panel wnl Ativan taper for alcohol withdrawal symptoms methadone taper, consulted with Kathy Mendoza for recommendations Continue Thorazine 50 in the morning Continue Thorazine 200 mg at bedtime ContinueThorazine 50 mg p.r.n. Continue Wellbutrin 100 mg b.i.d. Trazodone 50 mg with repeat Patient does not want Trileptal which will not be restarted; he was on gabapentin while in assisted but is not asking for now and display card writer will not started as this medication is problematic when combined with substance abuse Greater than 50% of the session was spent on counseling and/or coordination of care Reason for contiued inpatient stay Substantial Risk for: rapid decompensation
[2021-04-14] MEDS: clonazePAM 0.5 MG TABLET PO (17:01)
[2021-04-14] MEDS: traZODone HCL 50 MG TABLET PO (21:11)
[2021-04-14] MEDS: chlorproMAZINE HCl 100 MG TABLET 200 MG PO (21:11)
[2021-04-14] MEDS: Miconazole 2 % Extra Thick Cr 56.7 Gm Tube 1 APPL TOPICAL (21:43)
[2021-04-15] MEDS: Nicotine Polacrilex 2 MG GUM 4 MG BUCCAL ×6 (06:27→20:11)
[2021-04-15 06:38] VITALS: BP 129/71; PULSE 83; TEMP 36.1; O2SAT 97
[2021-04-15] MEDS: Acetaminophen 325 MG TABLET 650 MG PO (06:53)
[2021-04-15] MEDS: chlorproMAZINE HCl 25 MG TABLET 50 MG PO ×2 (08:13→17:11)
[2021-04-15] MEDS: clonazePAM 0.5 MG TABLET PO ×2 (08:13→20:11)
[2021-04-15] MEDS: buPROPion HCL 100 MG TABLET PO ×2 (08:13→13:34)
[2021-04-15 12:13] VITALS: BMI 28.5
--- NOTE | 2021-04-15 15:36 | HO.PSYCHPN ---
Subjective Subjective Date of Service: 04/15/21 Reason For Visit: Bipolar Interim History: Patient reports that he is doing okay but is feeling a lot of anxiety. He said he wanted to go to a program but now there are some issues going on in his life that is get in the way and he explains he is worried about losing his apartment; he does not elaborate however and leaves it at ?personal stuff. ? Personnel Specialist discussed getting on Suboxone or methadone for maintenance medication which patient said he would consider but does not like the idea of being addicted to anything at all. Personnel Specialist shared the benefits/risks of being on maintenance medications and how it is preferable to relapsing with opiates, however patient remains hesitant but reiterates he will consider. Medication Compliance: Yes Side effects from medications: No Mental Status Exam Mental Status Exam Narrative: Pt is alert and oriented; behavior is cooperative; patient is not in distress; dressed in casual attire with adequate hygiene; mood is described as anxious affect constricted and congruent; eye contact appropriate; Speech remains a little pressured, but normal volume and prosody; some mild psychomotor agitation; thought process is organized, and goal directed. Thought content is on treatment and otherwise pertinent to relevant topics and without any delusional content, paranoid ideations or grandiosity expressed or able to be solicited; denies any SI/HI. Intermittent Self-dialoguing, internally preoccupied; he reports AH but says it's minimal; Patients insight and judgment appear intact Diagnostics Vital Signs (24Hr): Vital Signs - 24 hr 04/14/21 15:45 04/15/21 06:38 Temperature 97.6 F 97.0 F Pulse Rate 99 83 Blood Pressure 113/70 129/71 Pulse Oximetry 97 Body Mass Index 28.5 Labs Results: 04/12/21 08:00 Medications Medications Current Medications Generic Name Dose Route Start Last Admin Trade Name Freq PRN Reason Stop Dose Admin Acetaminophen 650 mg 04/09/21 21:39 04/15/21 06:53 Acetaminophen 325 Mg Tablet PO 650 mg Q6H PRN Administration Headache/Pain Mild Scale (1-3) Al Hydroxide/Mg Hydroxide 30 ml 04/09/21 21:39 04/11/21 15:19 Magnesium Hydrox/Alum Hydrox 30 Ml Oral.Susp PO 30 ml Q6H PRN Administration Heartburn/Nausea Albuterol Sulfate 1 puff 04/13/21 15:07 04/13/21 18:25 Albuterol Sulfate 90 Mcg 8 Gm Inhaler INHALE 1 puff Q4H PRN Administration SOB/wheezing Benzocaine 1 appl 04/13/21 15:08 04/15/21 11:05 Benzocaine 10 % Oral Gel 9 Gm Tube MUCOUS MEM 1 appl TID PRN Administration oral pain Protocol Bupropion HCl 100 mg 04/10/21 10:08 04/15/21 13:34 Bupropion Hcl 100 Mg Tablet PO 100 mg BID@0830,1430 AMOR Administration Chlorpromazine HCl 50 mg 04/09/21 21:39 Chlorpromazine Hcl 25 Mg Tablet PO TID PRN anxiety/agitation Chlorpromazine HCl 50 mg 04/11/21 09:00 04/15/21 08:13 Chlorpromazine Hcl 25 Mg Tablet PO 50 mg DAILY AMOR Administration Chlorpromazine HCl 200 mg 04/10/21 21:00 04/14/21 21:11 Chlorpromazine Hcl 100 Mg Tablet PO 200 mg BEDTIME AMOR Administration Clonazepam 0.5 mg 04/14/21 16:40 04/15/21 08:13 Clonazepam 0.5 Mg Tablet PO 0.5 mg BID AMOR Administration Magnesium Hydroxide 30 ml 04/09/21 21:39 Milk Of Magnesia 30 Ml Oral.Susp PO DAILY PRN Constipation Miconazole Nitrate 1 appl 04/14/21 16:40 04/15/21 11:05 Miconazole 2 % Extra Thick Cr 56.7 Gm Tube TOPICAL 04/17/21 23:59 Not Given BID [facility] Protocol Nicotine 21 mg 04/09/21 21:39 Nicotine 21 Mg Patch.Td24 TRANSDERMA DAILY PRN nicotine cessation Nicotine Polacrilex 4 mg 04/09/21 21:39 04/15/21 13:34 Nicotine Polacrilex 2 Mg Gum BUCCAL 4 mg Q2H PRN Administration Nicotine Cravings Pharmacy Consult 1 each 04/09/21 21:45 Consult Rx Perform Med Rec MISCELLANE ONCE AMOR Trazodone HCl 50 mg 04/10/21 21:00 04/14/21 21:11 Trazodone Hcl 50 Mg Tablet PO 50 mg BEDTIME AMOR Administration Trazodone HCl 50 mg 04/10/21 10:10 Trazodone Hcl 50 Mg Tablet PO BEDTIME PRN continued insomnia Allergies Allergies Allergy/AdvReac Type Severity Reaction Status Date / Time cat dander [CATS] Allergy Unknown UNKNOWN Unverified 06/18/20 19:53 haloperidol [From HALDOL] Allergy Unknown UNKNOWN Unverified 06/18/20 19:53 olanzapine [From ZYPREXA] Allergy Unknown UNKNOWN Unverified 06/18/20 19:53 Penicillins [PENICILLINS] Allergy Unknown UNKNOWN Unverified 06/18/20 19:53 Assessment & Plan Assessment & Plan (1) Alcohol abuse: Status: Acute Code(s): F10.10 - Alcohol abuse, uncomplicated (2) Opiate abuse, episodic: Status: Acute Code(s): F11.10 - Opioid abuse, uncomplicated (3) Schizoaffective disorder, bipolar type: Status: Acute Code(s): F25.0 - Schizoaffective disorder, bipolar type Assessment and Plan: IMPRESSION: Patient is a 45-year-old male with history of psychotic illness and substance abuse who presents for auditory hallucinations, moderate manic symptoms and is also in need of detox from opiates. Patient signed CV. Patient presents with moderate manic symptoms, pressured speech, having not slept in days to weeks, relapsing with opiates and alcohol. Currently denies any SI or HI but is clearly having intrusive psychotic symptoms of auditory hallucinations. Patient also in need of detox and will start him on methadone taper. 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 Reports recent alcohol abuse but not sure how much and denies alcohol symptoms. Will monitor this and consider Ativan taper. Restarted medications the patient has been on in the past. will give clonazepam while on unit, but patient understands and accepts this will not be continued once discharged. pt does not seem to want maintenance medication for opioid abuse despite education. Remains w/out SI/HI; AH minimal. Ambivalent about a program following discharge. PLAN: Admit for treatment for psychotic symptoms and withdrawal Patient on CV Q 15 minutes checks for safety EKG on 04/11: QTC wnl HBA1C Wnl lipid panel wnl Ativan taper for alcohol withdrawal symptoms methadone taper, consulted with Kathy Mendoza for recommendations Continue Thorazine 50 in the morning Continue Thorazine 200 mg at bedtime ContinueThorazine 50 mg p.r.n. Continue Wellbutrin 100 mg b.i.d. Trazodone 50 mg with repeat Patient does not want Trileptal which will not be restarted; he was on gabapentin while in detention but is not asking for now and greeting card writer will not started as this medication is problematic when combined with substance abuse Greater than 50% of the session was spent on counseling and/or coordination of care Reason for contiued inpatient stay Substantial Risk for: other
[2021-04-15 18:00] VITALS: BP 132/70; PULSE 97; TEMP 36.7
[2021-04-15] MEDS: traZODone HCL 50 MG TABLET PO (20:57)
[2021-04-15] MEDS: chlorproMAZINE HCl 100 MG TABLET 200 MG PO (20:57)
[2021-04-16 06:00] VITALS: BP 108/65; PULSE 97; RESP 18; TEMP 35.9; O2SAT 100
[2021-04-16] MEDS: Nicotine Polacrilex 2 MG GUM 4 MG BUCCAL ×3 (06:29→10:59)
[2021-04-16] MEDS: Acetaminophen 325 MG TABLET 650 MG PO (06:29)
[2021-04-16] MEDS: buPROPion HCL 100 MG TABLET PO (07:43)
[2021-04-16] MEDS: Miconazole 2 % Extra Thick Cr 56.7 Gm Tube 1 APPL TOPICAL (08:58)
[2021-04-16] MEDS: chlorproMAZINE HCl 25 MG TABLET 50 MG PO (08:58)
[2021-04-16] MEDS: clonazePAM 0.5 MG TABLET PO (08:58)
--- NOTE | 2021-04-16 10:44 | P.DS_ITS ---
DS: Providers Provider Date of Service: 04/16/21 Date of admission: 04/09/21 19:56 Date of discharge: 04/16/21 Primary care physician: Radha Mueller NP Attending physician on admission: Rome Wood Consults: 04/10/21 10:05 Addiction Medicine Routine Consulting Provider: Kathy Mendoza Reason for consultation: methadone for detox Attending physician on discharge: Rome Wood DS: Diagnosis Discharge Diagnosis (1) Alcohol abuse: Status: Chronic (2) Opiate abuse, episodic: Status: Chronic (3) Schizoaffective disorder, bipolar type: Status: Chronic DS: Medications Discharge Medications Home Medications: Previous Rx's Medication Instructions Recorded albuterol sulfate [Ventolin HFA] 1 puff INHALATION Q4H PRN 30 Days 04/16/21 #6.7 g bupropion HCl [Wellbutrin SR] 100 mg PO BID 30 Days #60 tab 04/16/21 chlorpromazine See Rx Instructions .ROUTE 04/16/21 .COMPLEX #90 tab miconazole nitrate [Inzo 1 appl TOPICAL BID 5 Days #15 g 04/16/21 Antifungal] nicotine (polacrilex) 4 mg BUCCAL Q2H PRN 30 Days #50 ea 04/16/21 trazodone 50 mg PO BEDTIME 30 Days #30 tab 04/16/21 Discharge Plan Discharge Patient Disposition: Home, Self-Care Discharge Diagnosis: Schizoaffective disorder, bipolar type Referrals: Radha Mueller NP [Primary Care Provider] - 04/21/21 2:30 pm (DR. QUIROZ IS COVERING. IN OFFICE) Discharge Medications: New trazodone 50 mg Tablet 50 mg PO BEDTIME 30 Days Qty: 30 RF: 0 nicotine (polacrilex) 2 mg Gum 4 mg buccal Q2H PRN (Reason: Nicotine Cravings) 30 Days Qty: 50 RF: 0 chlorpromazine 100 mg Tablet See Rx Instructions .ROUTE .COMPLEX Qty: 90 RF: 0 albuterol sulfate [Ventolin HFA] 90 mcg/actuation Hfa Aerosol Inhaler 1 puff inhalation Q4H PRN (Reason: SOB/wheezing) 30 Days Qty: 6.7 RF: 0 miconazole nitrate [Inzo Antifungal] 2 % Cream 1 appl topical BID 5 Days Qty: 15 RF: 0 Changed bupropion HCl [Wellbutrin SR] 100 mg Tablet Sustained-Release 12 Hr 100 mg PO BID 30 Days Qty: 60 RF: 0 Discontinued oxcarbazepine 300 mg tablet 1 tab PO DAILY RF: 0 chlorpromazine 50 mg tablet 100 mg PO DAILY RF: 0 chlorpromazine 50 mg tablet 1 tab PO NEEDED RF: 0 Discharge Orders: Discharge Order (Routine); Ordered 04/16/21 Ordered By: Rome Wood Diet: regular diet Activity on Discharge: As tolerated Stand Alone Forms: Patient Portal Discharge page Care Plan Goals: Maintain mood and safe behaviors Take medications as prescribed Continue to pursue sobriety Practice coping skills Continue with outpatient providers and reach out to them as needed Health Concerns: Mood instability and behaviors Substance abuse Plan of Treatment: Follow up with your outpatient providers regarding above concerns Take medications as prescribed Assessment: Risk assessment at time of discharge: Patient has been observed closely by nursing and unit staff throughout admission; patient has not engaged in any behaviors that suggest dangerousness to self or others and has demonstrated appropriate behaviors and impulse control. Patient was interviewed prior to discharge and found to be fully oriented and without any SI or HI. Patient has insight and demonstrates good judgment in terms of wanting to pursue treatment. Patient is not in imminent risk of harm to self or others and has a safety plan that includes presenting to the closest ER or calling 911 if feeling unsafe Mental Status Exam Mental Status Exam Narrative: Pt is alert and oriented; behavior is cooperative, calm and friendly; patient is not in distress; dressed in casual attire with adequate hygiene; mood is described as good affect congruent; eye contact appropriate; Speech no l onger pressured and normal volume and prosody; no psychomotor agitation; thought process is organized, logical and goal directed. Thought content is on staying sober, getting back to his apartment and otherwise pertinent to relevant topics and without any delusional content, paranoid ideations or grandiosity expressed or able to be solicited; denies any SI/HI. Still has some Intermittent Self-dial oguing but this is baseline; he reports AH but says it's minimal and tolerable; Patients insight and judgment appear intact Data Data Completed and Pending Completed studies during hospitalization [Text1]: 04/12/21 04/12/21 04/12/21 08:00 08:00 08:00 WBC 8.9 RBC 4.77 Hgb 13.2 L Hct 40.8 L MCV 85.5 MCH 27.7 MCHC 32.4 RDW 13.6 Plt Count 265 MPV 9.9 Immature Gran % (Auto) 0.3 Neut % (Auto) 55.6 Lymph % (Auto) 30.0 [place] % (Auto) 9.9 Eos % (Auto) 3.9 Baso % (Auto) 0.3 Lymph # (Auto) 2.7 [place] # (Auto) 0.9 Eos # (Auto) 0.4 Baso # (Auto) 0.0 Abs Immat Gran (auto) 0.03 Absolute Neuts (auto) 4.9 Absolute Nucleated RBC 0.000 Nucleated RBC % (auto) 0.0 Estimat Average Glucose 111 Hemoglobin A1c % 5.5 Triglycerides 173 Cholesterol 152 LDL Cholesterol, Calc 65 HDL Cholesterol 53 DS: Summary Hospital Course Hospital Course: Patient is a 45-year-old male with history of schiizoaffective disorder, bipolar type and substance abuse who presents for auditory hallucinations, moderate manic symptoms and is also in need of detox from opiates. Patient signed CV. Patient presents with moderate manic symptoms, pressured speech, having not slept in days to weeks, relapsing with opiates and alcohol. He denies depression or any SI or HI but struggled with AH and was sridevi internally preoccupied. Patient also in need of detox and was started on a methadone taper. His medications were continued, with a few changes, such as discontinuing Trileptal which he no longer wanted and making Thorazine 200 at bedtime. Patient had some minor alcohol withdrawal symptoms and was put on a Ativan taper; and afterwards he had some anxiety and securities underwriter agree to give him clonazepam b.i.d. scheduled for the duration of the admission but not on discharge which patient was grateful for and fully accepted. Patient detoxed without incident. His mood remained overall good; he felt medications were effective says and reported auditory hallucinations became minimal and were no longer intrusive (pt says he always has AH but on meds they're tolerable). Patient continued to deny any suicidal or homicidal ideation during admission and demonstrated appropriate behaviors and impulse control on the unit. He considered getting on maintenance methadone or Suboxone but was ambivalent and eventually said he did not want to be on anything he would be addicted to; he said he would discuss this with outpatient provider if he changes his mind. Patient did not attend groups much while on the unit; he was a little grumpy at times but overall got along with staff and peers. Patient's mild manic symptoms subsided and he was sleeping well on the unit. Patient fully stabilized to returned to his baseline. He was debating whether to go to a program, however he was worried about losing his apartment so he asked for discharge instead. Patient was stable, sleeping and eating well, future oriented, without any SI or HI, in a good mood and on medications that he found effective and were well tolerated. Given his history and illness, patient remains vulnerable to both relapse and decompensation however this is chronic and something of which patient is well aware and more days on inpatient unit will not change. Patient was not in imminent risk for harm to self or others and his request for discharge honored. 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 Reports recent alcohol abuse but not sure how much and denies alcohol symptoms. Will monitor this and consider Ativan taper. Restarted medications the patient has been on in the past. Time spent discussing smoking cessation with patient: 3 to 10 minutes Status at Discharge Functional status at discharge: independent ambulation Overall status at discharge: patient is back to baseline Time Spent with Patient Time attestation: Total time spent providing and/or coordinating discharge services:
== END 2021-04-16 12:00 | disposition home or self-care (01) | DRG 750 ==
PROVIDERS: Admitting Provider Psychiatry & Neurology Psychiatry; PCP Nurse Practitioner Family; Visit Provider Psychiatry & Neurology Psychiatry
DX: F25.0 Schizoaffective disorder, bipolar type (principal); F10.10 Alcohol abuse, uncomplicated; F11.10 Opioid abuse, uncomplicated; Z88.0 Allergy status to penicillin; Z79.899 Other long term (current) drug therapy
CPT/HCPCS: 36415; 80061; 83036; 85025; 93005

== ENCOUNTER 2023-04-21 13:25 | Inpatient (IN) | payer OTHER, MEDICAID, SELFPAY ==
--- NOTE | ~2023-04-21 | XR_ITS ---
EXAMINATION: XR CHEST CLINICAL INFORMATION: Reason for Exam pneumonia COMPARISON: None TECHNIQUE: One view of the chest FINDINGS: Lines and tubes: None. Clear lungs. Blunting of the costophrenic angles may reflect trace bilateral pleural effusions or pleural parenchymal thickening. No pneumothorax. Unchanged cardiomediastinal silhouette. XR/XR chest 1V IMPRESSION: * Clear lungs.
[2023-04-21 13:30] VITALS: BP 146/89; BP 150/88; PULSE 69; PULSE 81; RESP 18; TEMP 36.3; O2SAT 100; O2SAT 96; BMI 30.1
[2023-04-21 14:19] LABS: Basophils Percent Auto 0.2 % (0-2); Eosinophils Absolute Auto 0.1 X10*3/uL (0.0-0.4); Eosinophils Percent Auto 0.3 % (0-4); Hematocrit 37.4 % (42.0-52.0); Hemoglobin 11.9 g/dl (14.0-18.0); Imm Gran Pct Auto 0.5 % (0.0-0.4); Lymphocytes Percent Auto 21.3 % (20-40); MANUAL DIFF FLAG SCAN; Mean Corpuscular HGB Conc 31.8 g/dl (31.0-36.0); Mean Corpuscular Hemoglobin 27.3 pg (27.0-33.0); Mean Corpuscular Volume 85.8 fL (80.0-98.0); Mean Platelet Volume 10.1 fL (9.4-12.4); Monocytes Absolute Auto 1.6 X10*3/uL (0.1-1.2); Monocytes Percent Auto 8.6 % (2-11); Neutrophils Absolute Auto 12.9 x10*3/uL (2.0-8.3); Neutrophils Percent Auto 69.1 % (45-73); Platelet Count 293 X10*3/uL (160-400); Red Blood Count 4.36 X10*6/uL (4.60-5.80); Red Cell Distribution Width 13.6 % (11.0-16.0); SCAN SMEAR FLAG 1; White Blood Count 18.8 X10*3/uL (4.8-10.8)
[2023-04-21 14:35] LABS: Acetaminophen LAB < 17 mcg/mL (<30); Salicylate < 5.0 mg/dL (15-30)
[2023-04-21 14:36] LABS: Alanine Aminotransferase 36 U/L (0-40); Alkaline Phosphatase 108 U/L (39-117); Anion Gap 13 (12-20); Aspartate Amino Transferase 25 U/L (5-37); Bilirubin Total 0.4 mg/dL (0.0-1.0); Blood Urea Nitrogen 24 mg/dL (9-16); Calcium 9.3 mg/dL (8.4-10.2); Carbon Dioxide 24 mmol/L (22-29); Chloride 104 mmol/L (96-108); Creatinine Clr Calc Pharmacy 107.6; Estimated Glomerular Filt Rate > 60; Ethanol < 10 mg/dL; Glucose Random 104 mg/dL (60-115); Potassium 3.7 mmol/L (3.3-5.1); Sodium 137 mmol/L (135-145); Total Protein 7.3 g/dL (6.5-8.0)
[2023-04-21 14:47] LABS: SLIDE REVIEW VERIFIED
[2023-04-21 15:12] LABS: COVID-19 Test Positive (Negative); IDNOW Serial# 6674DD1D
--- NOTE | 2023-04-21 15:43 | ED_ITS ---
HPI - Psych General Chief Complaint: Psychiatric Symptoms Stated Complaint: CRISIS,AUD AND VIS HALLUCINATIONS Time Seen by Provider: 04/21/23 14:05 Source: patient Mode of arrival: ambulatory Limitations: no limitations History of Present Illness HPI Narrative: 47 yold male presents to the ED for hallucinations and non-compliant with his meds. Patient denies any suicidal/homicdial ideation. Patient seen in the [facility] by care TEAM and a direct involuntary inpatient [facility] admission Related Data Home Medications Medication Instructions Recorded Confirmed oxcarbazepine 600 mg tablet 600 mg PO BID 04/22/23 04/22/23 (Trileptal) quetiapine 300 mg tablet 300 mg PO BEDTIME 04/22/23 04/22/23 quetiapine 50 mg tablet 50 mg PO BID 04/22/23 04/22/23 Allergies Allergy/AdvReac Type Severity Reaction Status Date / Time cat dander [CATS] Allergy Unknown UNKNOWN Verified 04/23/23 20:53 haloperidol [From HALDOL] Allergy Unknown UNKNOWN Verified 04/23/23 20:53 olanzapine [From ZYPREXA] Allergy Unknown UNKNOWN Verified 04/23/23 20:53 Penicillins [PENICILLINS] Allergy Unknown UNKNOWN Verified 04/23/23 20:53 Review of Systems Review of Systems: hallucinations Yes all other systems are reviewed and are negative PMFSH Past Medical History Medical History (Updated 04/22/23 @ 15:03 by Xi Brian) Alcohol abuse Opiate abuse, episodic Schizoaffective disorder, bipolar type Social History Social History Household Members: None Household Members Other:: coming from residential Housing: Other Do you presently have visiting nurse or other home services: No Alcohol intake: never Patient Tobacco Use Status: Current everyday Tobacco user Tobacco use type: Cigarette Cigarette Packs Per Day: 2 Cigarettes Per Day: 40.0 Years Smoked: 20 Smoked in Last 30 Days: No Second Hand Smoke Exposure: Yes Use of substances other than those prescribed or required for medical reasons: No Substance Use Type: Crack/Cocaine, Heroin and Marijuana Advance Directives: No Advance Directives Information Provided: Yes Healthcare Proxy: No Guardian: No service: No Sexual orientation: N/A Physical Exam Vital Signs: Vital Signs: Last Vital Signs Temp 97.4 F 04/24/23 08:25 Pulse 107 H 04/24/23 08:25 Resp 17 04/24/23 08:25 BP 156/98 H 04/24/23 08:25 Pulse Ox 100 04/24/23 08:25 O2 Del Method Room Air 04/24/23 08:25 BMI result Body Mass Index 30.1 Const: General: cooperative, healthy appearing, comfortable, no acute distress, well developed, alert, awake and Physically active Orientation/consciousness: oriented to person, oriented to place, oriented to time and patient oriented x3 HEENT: Head: Yes normal to inspection, Yes No palpable skull fracture present, Yes normocephalic, Yes atraumatic and No abrasion Eyes: General: appearance normal, both eyes and all related structures Neck: Neck: Yes normal visual inspection, Yes full ROM, Yes no lymphadenop athy, Yes no meningeal signs, Yes trachea midline, Yes supple, No anterior neck swelling and No tender Chest: Chest palpation & inspection: normal inspection of the chest and normal palpation of entire chest wall Resp: Effort & Inspection: normal respiratory effort and able to speak in complete sentences Auscultation: clear to auscultation bilaterally Cardio: Jugular venous distension: no JVD Heart sounds: S1 normal heart sound present and S2 normal heart sound present GI: Inspection: Yes normal to inspection and No abdominal wall ecchymosis Palpation (GI): Soft to palpation, not firm, nontender, no guarding and not rigid : General: No CVA tenderness and Yes no CVA tenderness Back/Spine/Pelvis: Back: no CVA tenderness, No CVA tenderness and No back tenderness Skin: General skin exam: no rashes or lesions noted, elasticity normal and turgor normal Neuro: General: oriented to person, oriented to place, oriented to time, patient oriented x3, gait normal, tone normal, moves all extremities, Normal light touch and pain sensation, no meningeal signs, no focal motor deficits, CN's II-XI intact bilaterally and normal sensation to monofilament Extrem: General: Yes normal to inspection and Yes full ROM Psych: Appearance: grossly normal and disheveled Course Reevaluation(s) Reevaluation #1: Patient received in sign-out at 10 shift pending psychiatric admission. Patient's UA does not show any evidence of infection, chest x-ray is clear. The patient's leukocytosis may be related to the polysubstance abuse. No further workup is indicated at this time Time: 19:32 Reevaluation #2: April 22 08:[address] Kearney waiting for crisis dispo remain hemodynamically stable no new complaint no event overnight.He has been medically cleared WBC noted will recheck this AM Time: 08:38 Reevaluation #3: I assumed care at approximately 7:00 a.m.. Patient has been having some hallucinations. He has not been taking his medications. Patient has a diagnosis of bipolar and schizoaffective disorder. Patient is pending full care team evaluation. He will remain on observation. Time: 10:04 Medications Administered Generic Name Dose Route Start Last Admin Trade Name Freq PRN Reason Stop Dose Admin Acetaminophen 650 mg 04/22/23 15:05 04/23/23 12:13 Acetaminophen 325 Mg Tablet PO 650 mg Q6H PRN Administration pain, fever Diphenhydramine HCl 50 mg 04/22/23 15:10 04/24/23 08:20 Diphenhydramine Hcl 25 Mg Capsule PO 50 mg Q6H PRN Administration allergies Gabapentin 800 mg 04/23/23 15:35 04/24/23 08:19 Gabapentin 600 Mg Tablet PO 800 mg TID AMOR Administration Guaifenesin/Dextromethorphan 1 tab 04/22/23 15:06 04/24/23 08:51 Guaifenesin Dm 600/30 1 Tab Tab.Er.12h PO 1 tab BID PRN Administration cough/congestion Oxcarbazepine 600 mg 04/22/23 21:00 04/24/23 08:20 Oxcarbazepine 300 Mg Tablet PO 600 mg BID AMOR Administration Quetiapine Fumarate 300 mg 04/22/23 21:00 04/23/23 22:06 Quetiapine Fumarate 300 Mg Tablet PO 300 mg BEDTIME AMOR Administration Quetiapine Fumarate 100 mg 04/24/23 08:00 04/24/23 08:20 Quetiapine Fumarate 100 Mg Tablet PO 100 mg BID@0800,1200 AMOR Administration Discontinued Medications Generic Name Dose Route Start Last Admin Trade Name Freq PRN Reason Stop Dose Admin Clonidine HCl 0.1 mg 04/22/23 09:55 04/22/23 17:16 Clonidine Hcl 0.1 Mg Tablet PO 04/22/23 09:56 Not Given ONCE ONE Protocol Diphenhydramine HCl 50 mg 04/23/23 22:34 04/24/23 08:24 Diphenhydramine Hcl 50 Mg/Ml Vial IM 04/23/23 22:35 Not Given ONCE ONE Hydroxyzine HCl 50 mg 04/22/23 09:57 04/22/23 17:17 Hydroxyzine Hcl 50 Mg Tablet PO 04/22/23 09:58 Not Given ONCE ONE Lorazepam 2 mg 04/23/23 15:32 04/23/23 16:20 Lorazepam 1 Mg Tablet PO 04/23/23 15:33 Not Given ONCE ONE Lorazepam 2 mg 04/23/23 22:34 04/24/23 08:24 Lorazepam 2 Mg/Ml Vial IM 04/23/23 22:35 Not Given ONCE ONE Methocarbamol 750 mg 04/22/23 09:56 04/22/23 17:17 Methocarbamol 750 Mg Tablet PO 04/22/23 09:57 Not Given ONCE ONE Olanzapine 5 mg 04/24/23 07:54 04/24/23 08:20 Olanzapine 5 Mg Tablet PO 04/24/23 07:55 5 mg ONCE ONE Administration Quetiapine Fumarate 50 mg 04/23/23 08:00 04/23/23 11:27 Quetiapine Fumarate 50 Mg Tablet PO 50 mg BID@0800,1200 AMOR Administration Medical Decision Making Medical Decision Making [facility] Narrative: 47-year-old male with past medical history of schizoaffective disorder bipolar presents to the ED for order hallucinations. Patient is not compliant with meds Patient was seen the community by care team who recommended involuntary psych inpatient admission. Patient denies any suicidal homicidal ideation. Patient denies any physical complaints. Patient's elevated white blood cell count. Patient positive COVID. NO need for further imaging or tests. Differential Diagnosis Differential Diagnoses: The differential diagnosis associated with the presentation includes (Bipolar, schizophrenia, depression, psychotic, homicidal, suicidal) Admission/Observation Consideration of admission/observation: Escalation of care including admission/observation considered Consult Healthcare Provider Management of the patient was discussed with: [employer]aming Mill Operator Helper (Care team) Lab Data [facility] Lab Attestation statement: I reviewed the patient's lab results. 04/21/23 14:03 04/21/23 14:03 Labs: Lab Results 04/21/23 04/21/23 04/21/23 Range/Units 14:03 14:03 14:03 WBC 18.8 H (4.8-10.8) X10*3/uL RBC 4.36 L (4.60-5.80) X10*6/uL Hgb 11.9 L (14.0-18.0) g/dl Hct 37.4 L (42.0-52.0) % MCV 85.8 (80.0-98.0) fL MCH 27.3 (27.0-33.0) pg MCHC 31.8 (31.0-36.0) g/dl RDW 13.6 (11.0-16.0) % Plt Count 293 (160-400) X10*3/uL MPV 10.1 (9.4-12.4) fL Immature Gran % (Auto) 0.5 H (0.0-0.4) % Neut % (Auto) 69.1 (45-73) % Lymph % (Auto) 21.3 (20-40) % [place] % (Auto) 8.6 (2-11) % Eos % (Auto) 0.3 (0-4) % Baso % (Auto) 0.2 (0-2) % Lymph # (Auto) 4.0 (1.2-4.9) X10*3/uL [place] # (Auto) 1.6 H (0.1-1.2) X10*3/uL Eos # (Auto) 0.1 (0.0-0.4) X10*3/uL Baso # (Auto) 0.0 (0.0-0.2) X10*3/uL Abs Immat Gran (auto) 0.10 H (0.00-0.03) X10*3/uL Absolute Neuts (auto) 12.9 H (2.0-8.3) x10*3/uL Absolute Nucleated RBC 0.000 (0.0-0.012) X10*3/uL Nucleated RBC % (auto) 0.0 (0.0-0.2) /100WBC Smear Tech's Comments VERIFIED Sodium 137 (135-145) mmol/L Potassium 3.7 (3.3-5.1) mmol/L Chloride 104 (96-108) mmol/L Carbon Dioxide 24 (22-29) mmol/L Anion Gap 13 (12-20) BUN 24 H (9-16) mg/dL Creatinine 0.78 (0.5-1.4) mg/dL Estim Creat Clear Calc 107.6 Estimated GFR > 60 Random Glucose 104 (60-115) mg/dL Calcium 9.3 (8.4-10.2) mg/dL Total Bilirubin 0.4 (0.0-1.0) mg/dL AST 25 (5-37) U/L ALT 36 (0-40) U/L Alkaline Phosphatase 108 (39-117) U/L Total Protein 7.3 (6.5-8.0) g/dL Albumin 4.0 (3.5-5.0) g/dL Urine Color Urine Appearance Urine pH (5.0-9.0) Ur Specific [place] (1.005-1.025) Urine Protein (Neg-Trace) mg/dL Urine Glucose (UA) (Negative) mg/dL Urine Ketones (Negative) mg/dL Urine Blood (Negative) Urine Nitrite (Negative) Ur Leukocyte Esterase (Negative) Salicylates (15-30) mg/dL Urine Opiates Screen (Not Detect) Urine Fentanyl Screen (Not Detect) Acetaminophen (<30) mcg/mL Ur Barbiturates Screen (Not Detect) Ur Phencyclidine Scrn (Not Detect) Ur Amphetamines Screen (Not Detect) U Benzodiazepines Scrn (Not Detect) Urine Cocaine Screen (Not Detect) U Marijuana (THC) Screen (Not Detect) Ethyl Alcohol < 10 mg/dL COVID-19 (GAMAL) Positive A (Negative) COVID-19 Clin Com See Note 04/21/23 04/21/23 04/21/23 Range/Units 14:03 17:54 17:54 WBC (4.8-10.8) X10*3/uL RBC (4.60-5.80) X10*6/uL Hgb (14.0-18.0) g/dl Hct (42.0-52.0) % MCV (80.0-98.0) fL MCH (27.0-33.0) pg MCHC (31.0-36.0) g/dl RDW (11.0-16.0) % Plt Count (160-400) X10*3/uL MPV (9.4-12.4) fL Immature Gran % (Auto) (0.0-0.4) % Neut % (Auto) (45-73) % Lymph % (Auto) (20-40) % [place] % (Auto) (2-11) % Eos % (Auto) (0-4) % Baso % (Auto) (0-2) % Lymph # (Auto) (1.2-4.9) X10*3/uL [place] # (Auto) (0.1-1.2) X10*3/uL Eos # (Auto) (0.0-0.4) X10*3/uL Baso # (Auto) (0.0-0.2) X10*3/uL Abs Immat Gran (auto) (0.00-0.03) X10*3/uL Absolute Neuts (auto) (2.0-8.3) x10*3/uL Absolute Nucleated RBC (0.0-0.012) X10*3/uL Nucleated RBC % (auto) (0.0-0.2) /100WBC Smear Tech's Comments Sodium (135-145) mmol/L Potassium (3.3-5.1) mmol/L Chloride (96-108) mmol/L Carbon Dioxide (22-29) mmol/L Anion Gap (12-20) BUN (9-16) mg/dL Creatinine (0.5-1.4) mg/dL Estim Creat Clear Calc Estimated GFR Random Glucose (60-115) mg/dL Calcium (8.4-10.2) mg/dL Total Bilirubin (0.0-1.0) mg/dL AST (5-37) U/L ALT (0-40) U/L Alkaline Phosphatase (39-117) U/L Total Protein (6.5-8.0) g/dL Albumin (3.5-5.0) g/dL Urine Color Yellow Urine Appearance Clear Urine pH 6.5 (5.0-9.0) Ur Specific [place] >= 1.030 H (1.005-1.025) Urine Protein Trace (Neg-Trace) mg/dL Urine Glucose (UA) Negative (Negative) mg/dL Urine Ketones Trace (Negative) mg/dL Urine Blood Negative (Negative) Urine Nitrite Negative (Negative) Ur Leukocyte Esterase Negative (Negative) Salicylates < 5.0 L (15-30) mg/dL Urine Opiates Screen POSITIVE H (Not Detect) Urine Fentanyl Screen POSITIVE H (Not Detect) Acetaminophen < 17 (<30) mcg/mL Ur Barbiturates Screen Not Detected (Not Detect) Ur Phencyclidine Scrn Not Detected (Not Detect) Ur Amphetamines Screen Not Detected (Not Detect) U Benzodiazepines Scrn Not Detected (Not Detect) Urine Cocaine Screen POSITIVE H (Not Detect) U Marijuana (THC) Screen Not Detected (Not Detect) Ethyl Alcohol mg/dL COVID-19 (GAMAL) (Negative) COVID-19 Clin Com 04/22/23 04/23/23 04/23/23 Range/Units 09:25 01:05 17:54 WBC 12.3 H (4.8-10.8) X10*3/uL RBC 4.60 (4.60-5.80) X10*6/uL Hgb 12.5 L (14.0-18.0) g/dl Hct 39.1 L (42.0-52.0) % MCV 85.0 (80.0-98.0) fL MCH 27.2 (27.0-33.0) pg MCHC 32.0 (31.0-36.0) g/dl RDW 14.0 (11.0-16.0) % Plt Count 328 (160-400) X10*3/uL MPV 10.2 (9.4-12.4) fL Immature Gran % (Auto) 0.4 (0.0-0.4) % Neut % (Auto) 69.1 (45-73) % Lymph % (Auto) 22.4 (20-40) % [place] % (Auto) 7.3 (2-11) % Eos % (Auto) 0.6 (0-4) % Baso % (Auto) 0.2 (0-2) % Lymph # (Auto) 2.8 (1.2-4.9) X10*3/uL [place] # (Auto) 0.9 (0.1-1.2) X10*3/uL Eos # (Auto) 0.1 (0.0-0.4) X10*3/uL Baso # (Auto) 0.0 (0.0-0.2) X10*3/uL Abs Immat Gran (auto) 0.05 H (0.00-0.03) X10*3/uL Absolute Neuts (auto) 8.5 H (2.0-8.3) x10*3/uL Absolute Nucleated RBC 0.000 (0.0-0.012) X10*3/uL Nucleated RBC % (auto) 0.0 (0.0-0.2) /100WBC Smear Tech's Comments Sodium (135-145) mmol/L Potassium (3.3-5.1) mmol/L Chloride (96-108) mmol/L Carbon Dioxide (22-29) mmol/L Anion Gap (12-20) BUN (9-16) mg/dL Creatinine (0.5-1.4) mg/dL Estim Creat Clear Calc Estimated GFR Random Glucose (60-115) mg/dL Calcium (8.4-10.2) mg/dL Total Bilirubin (0.0-1.0) mg/dL AST (5-37) U/L ALT (0-40) U/L Alkaline Phosphatase (39-117) U/L Total Protein (6.5-8.0) g/dL Albumin (3.5-5.0) g/dL Urine Color Cancelled Urine Appearance Cancelled Urine pH Cancelled (5.0-9.0) Ur Specific [place] Cancelled (1.005-1.025) Urine Protein Cancelled (Neg-Trace) mg/dL Urine Glucose (UA) Cancelled (Negative) mg/dL Urine Ketones Cancelled (Negative) mg/dL Urine Blood Cancelled (Negative) Urine Nitrite Cancelled (Negative) Ur Leukocyte Esterase Cancelled (Negative) Salicylates (15-30) mg/dL Urine Opiates Screen (Not Detect) Urine Fentanyl Screen (Not Detect) Acetaminophen (<30) mcg/mL Ur Barbiturates Screen (Not Detect) Ur Phencyclidine Scrn (Not Detect) Ur Amphetamines Screen (Not Detect) U Benzodiazepines Scrn (Not Detect) Urine Cocaine Screen (Not Detect) U Marijuana (THC) Screen (Not Detect) Ethyl Alcohol mg/dL COVID-19 (GAMAL) Negative (Negative) COVID-19 Clin Com See Note 04/24/23 Range/Units 08:13 WBC (4.8-10.8) X10*3/uL RBC (4.60-5.80) X10*6/uL Hgb (14.0-18.0) g/dl Hct (42.0-52.0) % MCV (80.0-98.0) fL MCH (27.0-33.0) pg MCHC (31.0-36.0) g/dl RDW (11.0-16.0) % Plt Count (160-400) X10*3/uL MPV (9.4-12.4) fL Immature Gran % (Auto) (0.0-0.4) % Neut % (Auto) (45-73) % Lymph % (Auto) (20-40) % [place] % (Auto) (2-11) % Eos % (Auto) (0-4) % Baso % (Auto) (0-2) % Lymph # (Auto) (1.2-4.9) X10*3/uL [place] # (Auto) (0.1-1.2) X10*3/uL Eos # (Auto) (0.0-0.4) X10*3/uL Baso # (Auto) (0.0-0.2) X10*3/uL Abs Immat Gran (auto) (0.00-0.03) X10*3/uL Absolute Neuts (auto) (2.0-8.3) x10*3/uL Absolute Nucleated RBC (0.0-0.012) X10*3/uL Nucleated RBC % (auto) (0.0-0.2) /100WBC Smear Tech's Comments Sodium (135-145) mmol/L Potassium (3.3-5.1) mmol/L Chloride (96-108) mmol/L Carbon Dioxide (22-29) mmol/L Anion Gap (12-20) BUN (9-16) mg/dL Creatinine (0.5-1.4) mg/dL Estim Creat Clear Calc Estimated GFR Random Glucose (60-115) mg/dL Calcium (8.4-10.2) mg/dL Total Bilirubin (0.0-1.0) mg/dL AST (5-37) U/L ALT (0-40) U/L Alkaline Phosphatase (39-117) U/L Total Protein (6.5-8.0) g/dL Albumin (3.5-5.0) g/dL Urine Color Urine Appearance Urine pH (5.0-9.0) Ur Specific [place] (1.005-1.025) Urine Protein (Neg-Trace) mg/dL Urine Glucose (UA) (Negative) mg/dL Urine Ketones (Negative) mg/dL Urine Blood (Negative) Urine Nitrite (Negative) Ur Leukocyte Esterase (Negative) Salicylates (15-30) mg/dL Urine Opiates Screen (Not Detect) Urine Fentanyl Screen (Not Detect) Acetaminophen (<30) mcg/mL Ur Barbiturates Screen (Not Detect) Ur Phencyclidine Scrn (Not Detect) Ur Amphetamines Screen (Not Detect) U Benzodiazepines Scrn (Not Detect) Urine Cocaine Screen (Not Detect) U Marijuana (THC) Screen (Not Detect) Ethyl Alcohol mg/dL COVID-19 (GAMAL) Negative (Negative) COVID-19 Clin Com See Note Independent Historian Clinical information obtained from an independent historian. History obtained from or confirmed by: Other (Nurse) Discharge Plan Discharge Clinical Impression: Schizoaffective disorder, bipolar type Patient Disposition: Still a Patient Prescriptions: No Action quetiapine 50 mg Tablet 50 mg PO BID quetiapine 300 mg Tablet 300 mg PO BEDTIME oxcarbazepine [Trileptal] 600 mg Tablet 600 mg PO BID Interventions: Starke-Suicide Risk Severity Scale Last Done: 04/23/23 22:58
--- NOTE | 2023-04-21 16:08 | PC.NURSE ---
Pt Pastor Dillon MD aware, Charge Nurse notified, Pt sleeping
--- NOTE | 2023-04-21 16:20 | PC.NURSE ---
WBC 18.8 Corvi and ED Charge notified
--- NOTE | 2023-04-21 16:31 | PC.NURSE ---
ED Charge notified of elevated WBC and Covid pos
--- NOTE | 2023-04-21 17:45 | PC.NURSE ---
Pt went to X-ray, has cough, and lethargy back, to room sleeping.
[2023-04-21 18:34] LABS: Appearance Urine Clear; Color Urine Yellow; Glucose Urine UA Negative (Negative); Leukocyte Esterase Urine Negative (Negative); Nitrite Urine Negative (Negative); PH 6.5 (5.0-9.0); Specific Gravity - Urine >= 1.030 (1.005-1.025); Urine Blood Negative (Negative); Urine Ketones Trace mg/dL (Negative); Urine Protein Trace mg/dL (Neg-Trace)
[2023-04-21 18:54] LABS: Amphetamine Screen Urine Not Detected (Not Detect); Barbiturates, Urine Not Detected (Not Detect); Benzodiazepines Screen Urine Not Detected (Not Detect); Cannabinoid Screen Urine Not Detected (Not Detect); Cocaine Screen Urine POSITIVE (Not Detect); Fentanyl, urine POSITIVE (Not Detect); Opiate Screen Urine POSITIVE (Not Detect); Phencyclidine Screen Urine Not Detected (Not Detect)
--- NOTE | 2023-04-22 01:43 | MHC.EDTECH ---
PATIENT REFUSED EKG ULISSES CHISHOLM .
--- NOTE | 2023-04-22 02:22 | PC.NURSE ---
Patient currently in bed appears sleeping, remains isolated most part of the shift, Covid +, disposition [facility] is section 12 inpatient bed search, behavior unpleasant and verbally abusive towards staff member, currently not on any medication, refusing EKG demanding to be left alone, appetite decent, will continue to monitor.
[2023-04-22 05:48] VITALS: RESP 18
--- NOTE | 2023-04-22 07:05 | PC.NURSE ---
patient appears to remain asleep at present respirations are even and unlabored patient appears in no distress
[2023-04-22 09:33] LABS: MANUAL DIFF FLAG NO
[2023-04-22 09:34] LABS: Basophils Percent Auto 0.2 % (0-2); Eosinophils Absolute Auto 0.1 X10*3/uL (0.0-0.4); Eosinophils Percent Auto 0.6 % (0-4); Hematocrit 39.1 % (42.0-52.0); Hemoglobin 12.5 g/dl (14.0-18.0); Imm Gran Abs Auto 0.05 X10*3/uL (0.00-0.03); Imm Gran Pct Auto 0.4 % (0.0-0.4); Lymphocytes Absolute Auto 2.8 X10*3/uL (1.2-4.9); Lymphocytes Percent Auto 22.4 % (20-40); Mean Corpuscular Hemoglobin 27.2 pg (27.0-33.0); Mean Platelet Volume 10.2 fL (9.4-12.4); Monocytes Absolute Auto 0.9 X10*3/uL (0.1-1.2); Monocytes Percent Auto 7.3 % (2-11); Neutrophils Absolute Auto 8.5 x10*3/uL (2.0-8.3); Neutrophils Percent Auto 69.1 % (45-73); Platelet Count 328 X10*3/uL (160-400); White Blood Count 12.3 X10*3/uL (4.8-10.8)
--- NOTE | 2023-04-22 15:02 | P.CNPS_ITS ---
History of Present Illness Date of Service: 04/23/2023 Chief Complaint: CRISIS,AUD AND VIS HALLUCINATIONS Discussed with referring provider: Yes Sources of Information: patient interviewed, chart reviewed and crisis/core team assessment reviewed HPI Narrative: Mr. Nieves is a 47 year-old male with hx of schizaffective disorder who was brought via EMS after being evaluated by N due to increase VH. Pt recently released from residential. He also has substance use disorder including opioid and cocaine use disorder. In the ED, his utox positive for fentanyl, opioid and cocaine. Pt also positive for covid In the ED, pt presents as fatigued. O2 sat stable and is currently afebrile but reports feeling very tired. He denies SI/HI. He is lying in bed, and states he is tired and does not want to answer more questions. Pt known [place] [facility] [place] admission to . We discussed restarting psych meds including trileptal and seroquel. Pt also started on medications for s/s of covid, including congestion, malaise, cough. Pt currently medically stable with no overt signs of respiratory distress. Past Psychiatric History: Long history of psychiatric inpatient admissions History of detox from substance abuse Review of Systems Review of Systems hallucinations Yes all other systems are reviewed and are negative [facility] Medical History (Updated 04/22/23 @ 15:03 by Xi Brian) Alcohol abuse Opiate abuse, episodic Schizoaffective disorder, bipolar type Family History: Deferred for now Social History: Deferred for now Trauma History: Deferred for now Diagnostics Vital Signs (24Hr): Vital Signs - 24 hr 04/22/23 05:48 Respiratory Rate 18 BMI result Body Mass Index 30.1 Labs 04/22/23 09:25 04/21/23 14:03 Labs: Laboratory Results - last 48 hr 04/21/23 04/21/23 04/21/23 14:03 14:03 14:03 WBC 18.8 H RBC 4.36 L Hgb 11.9 L Hct 37.4 L MCV 85.8 MCH 27.3 MCHC 31.8 RDW 13.6 Plt Count 293 MPV 10.1 Immature Gran % (Auto) 0.5 H Neut % (Auto) 69.1 Lymph % (Auto) 21.3 [place] % (Auto) 8.6 Eos % (Auto) 0.3 Baso % (Auto) 0.2 Lymph # (Auto) 4.0 [place] # (Auto) 1.6 H Eos # (Auto) 0.1 Baso # (Auto) 0.0 Abs Immat Gran (auto) 0.10 H Absolute Neuts (auto) 12.9 H Absolute Nucleated RBC 0.000 Nucleated RBC % (auto) 0.0 Smear Tech's Comments VERIFIED Sodium 137 Potassium 3.7 Chloride 104 Carbon Dioxide 24 Anion Gap 13 BUN 24 H Creatinine 0.78 Estim Creat Clear Calc 107.6 Estimated GFR > 60 Random Glucose 104 Calcium 9.3 Total Bilirubin 0.4 AST 25 ALT 36 Alkaline Phosphatase 108 Total Protein 7.3 Albumin 4.0 Urine Color Urine Appearance Urine pH Ur Specific [place] Urine Protein Urine Glucose (UA) Urine Ketones Urine Blood Urine Nitrite Ur Leukocyte Esterase Salicylates Urine Opiates Screen Urine Fentanyl Screen Acetaminophen Ur Barbiturates Screen Ur Phencyclidine Scrn Ur Amphetamines Screen U Benzodiazepines Scrn Urine Cocaine Screen U Marijuana (THC) Screen Ethyl Alcohol < 10 COVID-19 (GAMAL) Positive A COVID-19 [employer] See Note 04/21/23 04/21/23 04/21/23 14:03 17:54 17:54 WBC RBC Hgb Hct MCV MCH MCHC RDW Plt Count MPV Immature Gran % (Auto) Neut % (Auto) Lymph % (Auto) [place] % (Auto) Eos % (Auto) Baso % (Auto) Lymph # (Auto) [place] # (Auto) Eos # (Auto) Baso # (Auto) Abs Immat Gran (auto) Absolute Neuts (auto) Absolute Nucleated RBC Nucleated RBC % (auto) Smear Tech's Comments Sodium Potassium Chloride Carbon Dioxide Anion Gap BUN Creatinine Estim Creat Clear Calc Estimated GFR Random Glucose Calcium Total Bilirubin AST ALT Alkaline Phosphatase Total Protein Albumin Urine Color Yellow Urine Appearance Clear Urine pH 6.5 Ur Specific [place] >= 1.030 H Urine Protein Trace Urine Glucose (UA) Negative Urine Ketones Trace Urine Blood Negative Urine Nitrite Negative Ur Leukocyte Esterase Negative Salicylates < 5.0 L Urine Opiates Screen POSITIVE H Urine Fentanyl Screen POSITIVE H Acetaminophen < 17 Ur Barbiturates Screen Not Detected Ur Phencyclidine Scrn Not Detected Ur Amphetamines Screen Not Detected U Benzodiazepines Scrn Not Detected Urine Cocaine Screen POSITIVE H U Marijuana (THC) Screen Not Detected Ethyl Alcohol COVID-19 (GAMAL) COVID-19 [employer] 04/22/23 09:25 WBC 12.3 H RBC 4.60 Hgb 12.5 L Hct 39.1 L MCV 85.0 MCH 27.2 MCHC 32.0 RDW 14.0 Plt Count 328 MPV 10.2 Immature Gran % (Auto) 0.4 Neut % (Auto) 69.1 Lymph % (Auto) 22.4 [place] % (Auto) 7.3 Eos % (Auto) 0.6 Baso % (Auto) 0.2 Lymph # (Auto) 2.8 [place] # (Auto) 0.9 Eos # (Auto) 0.1 Baso # (Auto) 0.0 Abs Immat Gran (auto) 0.05 H Absolute Neuts (auto) 8.5 H Absolute Nucleated RBC 0.000 Nucleated RBC % (auto) 0.0 Smear Tech's Comments Sodium Potassium Chloride Carbon Dioxide Anion Gap BUN Creatinine Estim Creat Clear Calc Estimated GFR Random Glucose Calcium Total Bilirubin AST ALT Alkaline Phosphatase Total Protein Albumin Urine Color Urine Appearance Urine pH Ur Specific [place] Urine Protein Urine Glucose (UA) Urine Ketones Urine Blood Urine Nitrite Ur Leukocyte Esterase Salicylates Urine Opiates Screen Urine Fentanyl Screen Acetaminophen Ur Barbiturates Screen Ur Phencyclidine Scrn Ur Amphetamines Screen U Benzodiazepines Scrn Urine Cocaine Screen U Marijuana (THC) Screen Ethyl Alcohol COVID-19 (GAMAL) COVID-19 Clin Com Imaging Radiology Impressions: ITS Impressions Chest X-Ray 04/21/23 17:13 IMPRESSION: * Clear lungs. Mental Status Exam Mental Status Exam Narrative: Appearance: hospital gown, fair hygiene, in NAD Behavior: limited due to fatigue related to covid Psychomotor: somnolent Speech: clear, regular rate/rhythm/volume, minimally spontaneous, mostly because he is fatigued s/s covid and sleeping SI: denies HI: denies VH/AH: appears responding to internal stimuli Delusion: no overt delusional content Insight/judgment: poor x 2. Medications Medications Current Medications Oxcarbazepine (Oxcarbazepine 300 Mg Tablet) 600 mg PO BID AMRO Quetiapine Fumarate (Quetiapine Fumarate 50 Mg Tablet) 50 mg PO BID AMOR Quetiapine Fumarate (Quetiapine Fumarate 300 Mg Tablet) 300 mg PO BEDTIME AMOR Allergies Allergies Allergy/AdvReac Type Severity Reaction Status Date / Time cat dander [CATS] Allergy Unknown UNKNOWN Unverified 06/18/20 19:53 haloperidol [From HALDOL] Allergy Unknown UNKNOWN Unverified 06/18/20 19:53 olanzapine [From ZYPREXA] Allergy Unknown UNKNOWN Unverified 06/18/20 19:53 Penicillins [PENICILLINS] Allergy Unknown UNKNOWN Unverified 06/18/20 19:53 Assessment & Plan Assessment & Plan (1) Schizoaffective disorder, bipolar type: Status: Chronic Code(s): F25.0 - Schizoaffective disorder, bipolar type (2) Opioid use disorder, moderate, dependence: Status: Acute Code(s): F11.20 - Opioid dependence, uncomplicated (3) Cocaine use disorder, moderate, dependence: Status: Acute Code(s): F14.20 - Cocaine dependence, uncomplicated Plan Mr. Nieves is a 47 year-old male with hx of schizoaffective disorder also with opioid, cocaine use disorder who was brought via EMS assessed in community by [facility] due AH, disorganized behavior. In the ED- utox positive for opioids, cocaine. Pt also positive for covid and currently presents as fatigued, and sleepy due to covid. Will restart psych meds including trileptal, seroquel. Also confort meds for covid. Total time managing care of this patient today ____ minutes.
[2023-04-22 16:44] VITALS: BP 138/81; PULSE 52; RESP 16; TEMP 36.3; O2SAT 98
--- NOTE | 2023-04-22 16:46 | MHC.EDTECH ---
PATIENT CONTINUE TO REFUSED EKG ,RN CASSY AWARE ,VITALS TAKEN .
[2023-04-22] MEDS: QUEtiapine Fumarate 300 MG TABLET PO (20:47)
[2023-04-22] MEDS: OXcarbazepine 300 MG TABLET 600 MG PO (20:47)
[2023-04-23 01:03] VITALS: BP 124/84; PULSE 98; RESP 18; TEMP 36.2; O2SAT 97
[2023-04-23 01:26] LABS: COVID-19 Test Negative (Negative); IDNOW Serial# BCCEAD1C
--- NOTE | 2023-04-23 06:22 | SUR.OPER ---
Patient slept through the night, no distress observed/reported, medication compliant, patient is now tested negative for COVID, disposition per care team section 12 inpatient bed search, VSS, will continue to monitor.
[2023-04-23] MEDS: OXcarbazepine 300 MG TABLET 600 MG PO ×2 (08:11→22:05)
[2023-04-23] MEDS: QUEtiapine Fumarate 50 MG TABLET PO ×2 (08:12→11:27)
--- NOTE | 2023-04-23 11:42 | MHC.CARE ---
RAD Team conducted an external [facility] bed search for this individual, however, there are no beds available across the state for today. The search is exhausted and will be revisted tomorrow if deemed necessary.
[2023-04-23] MEDS: Acetaminophen 325 MG TABLET 650 MG PO (12:13)
--- NOTE | 2023-04-23 15:31 | P.CNPS_ITS ---
History of Present Illness Date of Service: 04/24/2023 Chief Complaint: CRISIS,AUD AND VIS HALLUCINATIONS Discussed with referring provider: Yes Sources of Information: patient interviewed, chart reviewed and crisis/core team assessment reviewed HPI Narrative: Interim Hx: pt much more labile and awake today. He is irritable, demanding at times. 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 Pt disorganized at times, eating throughout the day. Pt reports red spots throughout my body none that could be seen. Pt also reports neuropathy and states he has been on gabapentin in the past. Past Psychiatric History: Long history of psychiatric inpatient admissions History of detox from substance abuse Review of Systems Review of Systems hallucinations Yes all other systems are reviewed and are negative [facility] Medical History (Updated 04/22/23 @ 15:03 by Xi Brian) Alcohol abuse Opiate abuse, episodic Schizoaffective disorder, bipolar type Family History: Deferred for now Social History: Deferred for now Trauma History: Deferred for now Diagnostics Vital Signs (24Hr): Vital Signs - 24 hr 04/22/23 16:44 04/23/23 01:03 Temperature 97.4 F 97.2 F Pulse Rate 52 98 Respiratory Rate 16 18 Blood Pressure 138/81 124/84 Pulse Oximetry 98 97 Oxygen Delivery Method Room Air Room Air BMI result Body Mass Index 30.1 Labs 04/22/23 09:25 04/21/23 14:03 Labs: Laboratory Results - last 48 hr 04/21/23 04/21/23 04/22/23 17:54 17:54 09:25 WBC 12.3 H RBC 4.60 Hgb 12.5 L Hct 39.1 L MCV 85.0 MCH 27.2 MCHC 32.0 RDW 14.0 Plt Count 328 MPV 10.2 Immature Gran % (Auto) 0.4 Neut % (Auto) 69.1 Lymph % (Auto) 22.4 [place] % (Auto) 7.3 Eos % (Auto) 0.6 Baso % (Auto) 0.2 Lymph # (Auto) 2.8 [place] # (Auto) 0.9 Eos # (Auto) 0.1 Baso # (Auto) 0.0 Abs Immat Gran (auto) 0.05 H Absolute Neuts (auto) 8.5 H Absolute Nucleated RBC 0.000 Nucleated RBC % (auto) 0.0 Urine Color Yellow Urine Appearance Clear Urine pH 6.5 Ur Specific [place] >= 1.030 H Urine Protein Trace Urine Glucose (UA) Negative Urine Ketones Trace Urine Blood Negative Urine Nitrite Negative Ur Leukocyte Esterase Negative Urine Opiates Screen POSITIVE H Urine Fentanyl Screen POSITIVE H Ur Barbiturates Screen Not Detected Ur Phencyclidine Scrn Not Detected Ur Amphetamines Screen Not Detected U Benzodiazepines Scrn Not Detected Urine Cocaine Screen POSITIVE H U Marijuana (THC) Screen Not Detected COVID-19 (GAMAL) COVID-19 Clin Com 04/23/23 01:05 WBC RBC Hgb Hct MCV MCH MCHC RDW Plt Count MPV Immature Gran % (Auto) Neut % (Auto) Lymph % (Auto) [place] % (Auto) Eos % (Auto) Baso % (Auto) Lymph # (Auto) [place] # (Auto) Eos # (Auto) Baso # (Auto) Abs Immat Gran (auto) Absolute Neuts (auto) Absolute Nucleated RBC Nucleated RBC % (auto) Urine Color Urine Appearance Urine pH Ur Specific [place] Urine Protein Urine Glucose (UA) Urine Ketones Urine Blood Urine Nitrite Ur Leukocyte Esterase Urine Opiates Screen Urine Fentanyl Screen Ur Barbiturates Screen Ur Phencyclidine Scrn Ur Amphetamines Screen U Benzodiazepines Scrn Urine Cocaine Screen U Marijuana (THC) Screen COVID-19 (GAMAL) Negative COVID-19 Clin Com See Note Imaging Radiology Impressions: ITS Impressions Chest X-Ray 04/21/23 17:13 IMPRESSION: * Clear lungs. Mental Status Exam Mental Status Exam Narrative: Appearance: hospital gown, fair hygiene, in NAD Behavior: irritable Psychomotor: agitated Speech: clear, regular rate/rhythm/volume, minimally spontaneous, mostly because he is fatigued s/s covid and sleeping SI: denies HI: denies VH/AH: appears responding to internal stimuli, talking to someone who was not there Delusion: paranoid delusions Insight/judgment: poor x 2. Medications Medications Current Medications Acetaminophen (Acetaminophen 325 Mg Tablet) 650 mg PO Q6H PRN PRN Reason: pain, fever Last Admin: 04/23/23 12:13 Dose: 650 mg Diphenhydramine HCl (Diphenhydramine Hcl 25 Mg Capsule) 50 mg PO Q6H PRN PRN Reason: allergies Guaifenesin/Dextromethorphan (Guaifenesin Dm 600/30 1 Tab Tab.Er.12h) 1 tab PO BID PRN PRN Reason: cough/congestion Oxcarbazepine (Oxcarbazepine 300 Mg Tablet) 600 mg PO BID [facility] Last Admin: 04/23/23 08:11 Dose: 600 mg Quetiapine Fumarate (Quetiapine Fumarate 300 Mg Tablet) 300 mg PO BEDTIME [facility] Last Admin: 04/22/23 20:47 Dose: 300 mg Quetiapine Fumarate (Quetiapine Fumarate 50 Mg Tablet) 50 mg PO BID@0800,1200 [facility] Last Admin: 04/23/23 11:27 Dose: 50 mg Allergies Allergies Allergy/AdvReac Type Severity Reaction Status Date / Time cat dander [CATS] Allergy Unknown UNKNOWN Unverified 06/18/20 19:53 haloperidol [From HALDOL] Allergy Unknown UNKNOWN Unverified 06/18/20 19:53 olanzapine [From ZYPREXA] Allergy Unknown UNKNOWN Unverified 06/18/20 19:53 Penicillins [PENICILLINS] Allergy Unknown UNKNOWN Unverified 06/18/20 19:53 Assessment & Plan Assessment & Plan (1) Schizoaffective disorder, bipolar type: Status: Chronic Code(s): F25.0 - Schizoaffective disorder, bipolar type (2) Opioid use disorder, moderate, dependence: Status: Acute Code(s): F11.20 - Opioid dependence, uncomplicated (3) Cocaine use disorder, moderate, dependence: Status: Acute Code(s): F14.20 - Cocaine dependence, uncomplicated Plan Mr. Nieves is a 47 year-old male with hx of schizoaffective disorder also with opioid, cocaine use disorder who was brought via EMS assessed in community by N due AH, disorganized behavior. In the ED- utox positive for opioids, cocaine. Pt also positive for covid and currently presents as fatigued, and sleepy due to covid. Will restart psych meds including trileptal, seroquel. Also confort meds for covid. 04/23 pt retested for covid today and is now negative. Pt with no respiratory symptoms. Pt presents as labile, responding to internal stimuli. Increase seroquel to 100mg po BID and 300mg po qhs. continue trileptal but may need more effective mood stabilizer. Continue bedsearch. Total time managing care of this patient today ____ minutes.
--- NOTE | 2023-04-23 15:32 | PC.NURSE ---
pt at nurses station, verbally agressive. calling this rn faggot and white boy . given ice water. back to room without incident.
[2023-04-23] MEDS: Gabapentin 600 MG TABLET 800 MG PO ×2 (16:11→22:06)
--- NOTE | 2023-04-23 16:20 | PC.NURSE ---
Patient approached with medications ativan and gabapentin, patient asked what the ativan was for and he was educated on the purpose of the ativan. Patient stated get that shit out of here. Ativan removed from medication cup, patient took his Gabapentin. Told this nurse to go take a walk. Patient resting on bed.
[2023-04-23 18:30] VITALS: BP 144/70; PULSE 96; RESP 20; TEMP 37.1; O2SAT 99
[2023-04-23] MEDS: QUEtiapine Fumarate 300 MG TABLET PO (22:06)
--- NOTE | 2023-04-23 22:07 | PC.NURSE ---
patient received in a agitated and hyper verbal with staff and peers patient is very uncooperative security had to come in the unit to help to get patient to take his medications patient will continue to be monitored for safety
--- NOTE | 2023-04-23 23:39 | PC.NURSE ---
patient refused to have EKG performed patient was asked 3 times patient denied
--- NOTE | 2023-04-24 04:05 | PC.NURSE ---
patient in bed with eyes closed patient showing no distress at this time patient respirations are unlabored patient will continue to be monitored for safety
--- NOTE | 2023-04-24 08:00 | PC.NURSE ---
pt is out of his room and continues to pace hallway and is speaking to him self stating that i told them that the rain was going to fall and i made it rain and they think that i am crazy .pt is now in the common area sitting at the table.
[2023-04-24] MEDS: OLANZapine 5 MG TABLET PO (08:20)
[2023-04-24 08:25] VITALS: BP 156/98; PULSE 107; RESP 17; TEMP 36.3; O2SAT 100
--- NOTE | 2023-04-24 08:30 | PC.NURSE ---
pt a/o no sob/cynthia noted speaks in full sentences. pt is delusional and is anxious and pacing at times going back and forth to his room and exercising. pt denies any si/hi. pt has refused to take his meds except the tylenol at this time. pt states too much meds, i don't want them . aware.
[2023-04-24 08:32] LABS: COVID-19 Test Negative (Negative); IDNOW Serial# BCCEAD1C
--- NOTE | 2023-04-24 11:18 | PC.NURSE ---
PT HAS THE HEAD PHONE AND IS REQUESTING MUSIC ADJUSTMENT FROM THE [facility] AND IS USING FOUL LANGUAGE SUCH ( GORDO GEORGE THAT ) PT WAS VERBALLY RE-DIRECTED, BUT PT STATED I AM AN CITIZEN OF [place] AND THERE IS FREEDOM OF SPEECH . PT HAS NOW AMBULATED TO CHAIR IN COMMON AREA WITH THE MUSIC HEADPHONE ON.
[2023-04-24] MEDS: QUEtiapine Fumarate 100 MG TABLET PO (14:06)
[2023-04-24] MEDS: Gabapentin 600 MG TABLET 800 MG PO (14:07)
--- NOTE | 2023-04-24 14:21 | MHC.CARE ---
1st shift RAD Team conducted an external statewide bed search today. There were only 2 facilities with possible beds. The referral has been faxed to [facility] and [facility]. 2nd shift RAD Team will followup.
[2023-04-24 17:12] VITALS: BP 159/99; PULSE 96; RESP 16; TEMP 37.2; O2SAT 100
--- NOTE | 2023-04-24 17:47 | PC.NURSE ---
PT C/O BLISTER ON R PLANTAR FOOT. PT HAS A DARK QUARTER SIZE SM. AMT OF FLUID AREA TO FOOT. AWARE.
--- NOTE | 2023-04-24 18:11 | PC.NURSE ---
[facility] MUSICAL HEADPHONE HAS BEEN OF GREAT HELP TO THE PT ALL DAY. PT HAS BEEN PACING, VISUAL AND AUDITORY HALLUCINATION.
[2023-04-24] MEDS: OXcarbazepine 300 MG TABLET 600 MG PO (20:08)
[2023-04-24] MEDS: Gabapentin 400 MG CAPSULE 800 MG PO (20:08)
[2023-04-24] MEDS: QUEtiapine Fumarate 300 MG TABLET PO (20:08)
--- NOTE | 2023-04-25 | ECG_ITS ---
Test Reason : QTC CHECK Blood Pressure : / mmHG Vent. Rate : 044 BPM Atrial Rate : 044 BPM P-R Int : 132 ms QRS Dur : 082 ms QT Int : 436 ms P-R-T Axes : 023 039 013 degrees QTc Int : 372 ms Marked sinus bradycardia Abnormal ECG When compared with ECG of 11-APR-2021 17:06, QT has shortened Referred By: Ann Barrera Electronically Signed By:JANETH GUSMAN MD
[2023-04-25] MEDS: Acetaminophen 325 MG TABLET 650 MG PO ×3 (01:19→16:15)
--- NOTE | 2023-04-25 06:49 | PC.NURSE ---
Patient slept through the night, no distress observed/reported, behavior unpleasant, unpredictable, loud and verbally abusive towards staff member, disposition [facility] is section 12 inpatient bed search, no update on bed search, patient is selectively compliant with his medication, VSS, will continue to monitor.
--- NOTE | 2023-04-25 07:30 | PC.NURSE ---
Pt is verbally aggressive and demanding. able to sooth with music/head phones
--- NOTE | 2023-04-25 07:38 | PC.NURSE ---
Pt request MOM for constipation. MD notified.
[2023-04-25] MEDS: Gabapentin 400 MG CAPSULE 800 MG PO ×3 (09:45→20:27)
--- NOTE | 2023-04-25 10:30 | PC.NURSE ---
Security was alerted this AM. 0830 busted through door and sat 1hr deescalation, MD Cleary was in, Pt to opposite door. Ran to room pt was placed in a 4 point restraint at 0930 and released at 1000. [facility] [place]. during that time. Pt was released. Bryson Honeycutt Buggyman was in from former assisted. Message was left at for Cori regarding Pts desire to be discharged to [facility]. Pt states she is frustrated with none working on here case It is reported that Pts Mother is refusing to take her home. It was reported to me Pt will be possibly discharged on her Birthday.
[2023-04-25] MEDS: Milk of Magnesia 30 ML ORAL.SUSP PO (12:06)
[2023-04-25 15:15] VITALS: BP 149/76; PULSE 88; TEMP 36.7; O2SAT 96
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
[2023-04-25] MEDS: diphenhydrAMINE HCL 25 MG CAPSULE 50 MG PO (18:28)
[2023-04-25] MEDS: guaiFENesin DM 600/30 1 TAB TAB.ER.12H PO (18:28)
[2023-04-25] MEDS: QUEtiapine Fumarate 300 MG TABLET PO (20:27)
[2023-04-25] MEDS: methADONE HCl 20 MG/2 ML ORAL.CONC 10 MG PO (21:03)
--- NOTE | 2023-04-25 21:53 | PC.NURSE ---
pt has been trying to walk out in halls with shirt off. pt was redirected to his room to put a shirt on
--- NOTE | 2023-04-25 21:53 | PC.NURSE ---
pt did not want to complete admission earlier in shift. pt report he did not smoke. later in shift, pt said he needs a nicotine patch and he takes 50 mg of methadone. notified.
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
[2023-04-26] MEDS: Nicotine Polacrilex 2 MG GUM 4 MG BUCCAL (00:18)
--- NOTE | 2023-04-26 07:40 | HE.PHANOTE ---
RE: METHADONE VERIFICATION Last dose on 04/13 was 50 mg at [facility] verified by Srinivas Sterling
[2023-04-26 08:00] VITALS: BP 158/79; PULSE 81; RESP 16; TEMP 36.7; O2SAT 99
[2023-04-26] MEDS: methADONE HCl 20 MG/2 ML ORAL.CONC 30 MG PO (08:36)
[2023-04-26] MEDS: Gabapentin 400 MG CAPSULE 800 MG PO ×3 (08:36→21:26)
[2023-04-26] MEDS: Acetaminophen 325 MG TABLET 650 MG PO (08:46)
[2023-04-26] MEDS: Nicotine 21 MG PATCH.TD24 TRANSDERMA (08:46)
[2023-04-26 10:13] LABS: Estimated Average Glucose 97 mg/dL
[2023-04-26 10:22] LABS: Cholesterol 147 mg/dL; HDL Cholesterol 46 mg/dL; LDL Cholesterol Calculated 74 mg/dl; Magnesium 2.2 mg/dL (1.6-2.6); Triglycerides 135 mg/dL
[2023-04-26 10:37] LABS: Free T4 (Free Thyroxine) 0.92 ng/dL (0.71-1.85); Thyroid Stimulating Hormone 2.16 uIU/mL (0.32-4.0)
[2023-04-26 10:51] LABS: Folate 9.4 ng/mL (> or = 4.0); Vitamin B12 702 pg/mL (200-900)
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
[2023-04-26] MEDS: methADONE HCl 20 MG/2 ML ORAL.CONC 10 MG PO (15:13)
[2023-04-26 21:05] VITALS: BP 161/78; PULSE 93; RESP 18; O2SAT 98
[2023-04-26] MEDS: cloNIDine HCL 0.1 MG TABLET PO (21:27)
[2023-04-26] MEDS: diphenhydrAMINE HCL 25 MG CAPSULE 50 MG PO (21:27)
[2023-04-26] MEDS: QUEtiapine Fumarate 300 MG TABLET 600 MG PO (21:27)
[2023-04-27 08:01] VITALS: BP 130/94; PULSE 100; RESP 18; TEMP 36.3; O2SAT 99
[2023-04-27] MEDS: methADONE HCl 20 MG/2 ML ORAL.CONC 40 MG PO (08:14)
[2023-04-27] MEDS: Acetaminophen 325 MG TABLET 650 MG PO (08:14)
[2023-04-27] MEDS: Gabapentin 400 MG CAPSULE 800 MG PO ×2 (08:14→20:58)
[2023-04-27] MEDS: Nicotine 21 MG PATCH.TD24 TRANSDERMA (08:20)
--- NOTE | 2023-04-27 14:06 | P.PNPSI_ITS ---
Subjective Subjective Date of Service: 04/27/23 Reason For Visit: Opiate cocaine use d/o schizoaffective disorder bi Interim History: pressured, delusional. reports he slept last night, however, and that he is just high energy. declines mood stabilizer. interested in housing and a pr ogram from PACT team. per staff, pleasant, manic, pacing, RIS. nani is after me. sleeping, med-compliant. Mental Status Exam Mental Status Exam Narrative: calm, cooperative. dressed in hospital scrubs. no PMA/PMR. incr rate and amount of speech, decr latency. nml prosody and loudness. thoughts tangential. affect hyper-intense, non-labile. mood not assessed. no SI/SIBI/HI/AVH expressed. Diagnostics Vital Signs (24Hr): Vital Signs - 24 hr 04/26/23 21:05 04/27/23 08:01 Temperature 97.4 F Pulse Rate 93 100 Respiratory Rate 18 18 Blood Pressure 161/78 H 130/94 H Pulse Oximetry 98 99 Oxygen Delivery Method Room Air Room Air BMI result Body Mass Index 30.1 Labs 04/22/23 09:25 04/21/23 14:03 Labs: Laboratory Results - last 48 hr 04/26/23 04/26/23 04/26/23 09:38 09:39 09:39 Estimat Average Glucose 97 Hemoglobin A1c % 5.0 Magnesium 2.2 Triglycerides 135 Cholesterol 147 LDL Cholesterol, Calc 74 HDL Cholesterol 46 Vitamin B12 702 Folate 9.4 TSH 2.16 Free T4 0.92 Imaging Radiology Impressions: ITS Impressions Chest X-Ray 04/21/23 17:13 IMPRESSION: * Clear lungs. Medications Medications Current Medications Acetaminophen (Acetaminophen 325 Mg Tablet) 650 mg PO Q6H PRN PRN Reason: pain, fever Last Admin: 04/27/23 08:14 Dose: 650 mg Al Hydroxide/Mg Hydroxide (Magnesium Hydrox/Alum Hydrox 30 Ml Oral.Susp) 30 ml PO Q6H PRN PRN Reason: Heartburn/Nausea Clonidine HCl (Clonidine Hcl 0.1 Mg Tablet) 0.1 mg PO Q4H PRN; Protocol PRN Reason: withdrawal symptoms Last Admin: 04/26/23 21:27 Dose: 0.1 mg Diphenhydramine HCl (Diphenhydramine Hcl 25 Mg Capsule) 50 mg PO Q6H PRN PRN Reason: allergies Last Admin: 04/26/23 21:27 Dose: 50 mg Gabapentin (Gabapentin 400 Mg Capsule) 800 mg PO TID [facility]OR Last Admin: 04/27/23 08:14 Dose: 800 mg Guaifenesin/Dextromethorphan (Guaifenesin Dm 600/30 1 Tab Tab.Er.12h) 1 tab PO BID PRN PRN Reason: cough/congestion Last Admin: 04/25/23 18:28 Dose: 1 tab Magnesium Hydroxide (Milk Of Magnesia 30 Ml Oral.Susp) 30 ml PO DAILY PRN PRN Reason: Constipation Methadone HCl (Methadone Hcl 20 Mg/2 Ml Oral.Conc) 40 mg PO DAILY [facility] Last Admin: 04/27/23 08:14 Dose: 40 mg Nicotine (Nicotine 21 Mg Patch.Td24) 21 mg TRANSDERMA DAILY PRN PRN Reason: smoking cessation Last Admin: 04/27/23 08:20 Dose: 21 mg Nicotine Polacrilex (Nicotine Polacrilex 2 Mg Gum) 4 mg BUCCAL Q2H PRN PRN Reason: nicotine cravings Last Admin: 04/26/23 00:18 Dose: 4 mg Quetiapine Fumarate (Quetiapine Fumarate 300 Mg Tablet) 600 mg PO BEDTIME [facility] Last Admin: 04/26/23 21:27 Dose: 600 mg Trazodone HCl (Trazodone Hcl 50 Mg Tablet) 50 mg PO BEDTIME PRN PRN Reason: Insomnia Ziprasidone (Ziprasidone 20 Mg Capsule) 20 mg PO BID PRN PRN Reason: agitation Allergies Allergies Allergy/AdvReac Type Severity Reaction Status Date / Time cat dander [CATS] Allergy Unknown UNKNOWN Verified 04/23/23 20:53 haloperidol [From HALDOL] Allergy Unknown UNKNOWN Verified 04/23/23 20:53 olanzapine [From ZYPREXA] Allergy Unknown UNKNOWN Verified 04/23/23 20:53 Penicillins [PENICILLINS] Allergy Unknown UNKNOWN Verified 04/23/23 20:53 Assessment & Plan Assessment & Plan (1) Cocaine use disorder, moderate, dependence: Status: Acute Code(s): F14.20 - Cocaine dependence, uncomplicated (2) Opioid use disorder, moderate, dependence: Status: Acute Code(s): F11.20 - Opioid dependence, uncomplicated (3) Schizoaffective disorder, bipolar type: Status: Chronic Code(s): F25.0 - Schizoaffective disorder, bipolar type Plan 04/26: increase seroquel 100/100/300 to 600 mg QHS, per pt request. DC trileptal, per pt request (and as a [id number] mood stabilizer). i ncrease methadone from 30 mg daily to 40 mg daily per pt request. 04/27: appears more pressured and tangential than yesterday. declines evidence- based mood stabilizer. states he is sleeping adequately. interested in help with housing. 3-day submitted, matures monday. Reason for continued inpatient stay Substantial Risk for: inability to function and rapid decompensation Time Spent With Patient Time: Total time managing care of this patient today __25__ minutes.
[2023-04-27 19:59] VITALS: BP 127/75; PULSE 94; RESP 18; TEMP 36.8; O2SAT 96
[2023-04-27] MEDS: QUEtiapine Fumarate 300 MG TABLET 600 MG PO (20:59)
[2023-04-28] MEDS: Gabapentin 400 MG CAPSULE 800 MG PO ×2 (08:07→22:45)
[2023-04-28] MEDS: Acetaminophen 325 MG TABLET 650 MG PO (08:07)
[2023-04-28] MEDS: methADONE HCl 20 MG/2 ML ORAL.CONC 40 MG PO (08:07)
[2023-04-28 08:11] VITALS: BP 139/81; PULSE 90; RESP 18; TEMP 36.7; O2SAT 99
[2023-04-28] MEDS: Nicotine 21 MG PATCH.TD24 TRANSDERMA (08:17)
--- NOTE | 2023-04-28 13:37 | P.PNPSI_ITS ---
Subjective Subjective Date of Service: 04/28/23 Reason For Visit: Opiate cocaine use d/o schizoaffective disorder bi Interim History: hyperverbal, ebullient. would like to leave on monday. seems to have unreasonable expectations for PACT team and SW here to get him housing. 3-day up on monday. per staff, saying things such as, to all christians! adn i'm not a pervert, i have a daughter. loudly on the unit. Mental Status Exam Mental Status Exam Narrative: energetic, cooperative. dressed in hospital scrubs. no PMA/PMR. incr rate and amount of speech, decr latency. nml prosody and loudness. thoughts tangential. affect hyper-intense, non-labile. mood not assessed. no SI/SIBI/HI/AVH expressed. Diagnostics Vital Signs (24Hr): Vital Signs - 24 hr 04/27/23 19:59 04/28/23 08:11 Temperature 98.3 F 98.0 F Pulse Rate 94 90 Respiratory Rate 18 18 Blood Pressure 127/75 139/81 Pulse Oximetry 96 99 Oxygen Delivery Method Room Air Room Air BMI result Body Mass Index 30.1 Labs 04/22/23 09:25 04/21/23 14:03 Imaging Radiology Impressions: ITS Impressions Chest X-Ray 04/21/23 17:13 IMPRESSION: * Clear lungs. Medications Medications Current Medications Acetaminophen (Acetaminophen 325 Mg Tablet) 650 mg PO Q6H PRN PRN Reason: pain, fever Last Admin: 04/28/23 08:07 Dose: 650 mg Al Hydroxide/Mg Hydroxide (Magnesium Hydrox/Alum Hydrox 30 Ml Oral.Susp) 30 ml PO Q6H PRN PRN Reason: Heartburn/Nausea Clonidine HCl (Clonidine Hcl 0.1 Mg Tablet) 0.1 mg PO Q4H PRN; Protocol PRN Reason: withdrawal symptoms Last Admin: 04/26/23 21:27 Dose: 0.1 mg Diphenhydramine HCl (Diphenhydramine Hcl 25 Mg Capsule) 50 mg PO Q6H PRN PRN Reason: allergies Last Admin: 04/26/23 21:27 Dose: 50 mg Gabapentin (Gabapentin 400 Mg Capsule) 800 mg PO TID [facility] Last Admin: 04/28/23 08:07 Dose: 800 mg Guaifenesin/Dextromethorphan (Guaifenesin Dm 600/30 1 Tab Tab.Er.12h) 1 tab PO BID PRN PRN Reason: cough/congestion Last Admin: 04/25/23 18:28 Dose: 1 tab Magnesium Hydroxide (Milk Of Magnesia 30 Ml Oral.Susp) 30 ml PO DAILY PRN PRN Reason: Constipation Methadone HCl (Methadone Hcl 20 Mg/2 Ml Oral.Conc) 40 mg PO DAILY [facility] Last Admin: 04/28/23 08:07 Dose: 40 mg Nicotine (Nicotine 21 Mg Patch.Td24) 21 mg TRANSDERMA DAILY PRN PRN Reason: smoking cessation Last Admin: 04/28/23 08:17 Dose: 21 mg Nicotine Polacrilex (Nicotine Polacrilex 2 Mg Gum) 4 mg BUCCAL Q2H PRN PRN Reason: nicotine cravings Last Admin: 04/26/23 00:18 Dose: 4 mg Quetiapine Fumarate (Quetiapine Fumarate 300 Mg Tablet) 600 mg PO BEDTIME [facility] Last Admin: 04/27/23 20:59 Dose: 600 mg Trazodone HCl (Trazodone Hcl 50 Mg Tablet) 50 mg PO BEDTIME PRN PRN Reason: Insomnia Ziprasidone (Ziprasidone 20 Mg Capsule) 20 mg PO BID PRN PRN Reason: agitation Allergies Allergies Allergy/AdvReac Type Severity Reaction Status Date / Time cat dander [CATS] Allergy Unknown UNKNOWN Verified 04/23/23 20:53 haloperidol [From HALDOL] Allergy Unknown UNKNOWN Verified 04/23/23 20:53 olanzapine [From ZYPREXA] Allergy Unknown UNKNOWN Verified 04/23/23 20:53 Penicillins [PENICILLINS] Allergy Unknown UNKNOWN Verified 04/23/23 20:53 Assessment & Plan Assessment & Plan (1) Cocaine use disorder, moderate, dependence: Status: Acute Code(s): F14.20 - Cocaine dependence, uncomplicated (2) Opioid use disorder, moderate, dependence: Status: Acute Code(s): F11.20 - Opioid dependence, uncomplicated (3) Schizoaffective disorder, bipolar type: Status: Chronic Code(s): F25.0 - Schizoaffective disorder, bipolar type Plan 04/26: increase seroquel 100/100/300 to 600 mg QHS, per pt request. DC trileptal, per pt request (and as a [id number] mood stabilizer). increase methadone from 30 mg daily to 40 mg daily per pt request. 04/27: appears more pressured and tangential than yesterday. declines evidence- based mood stabilizer. states he is sleeping adequately. interested in help with housing. 3-day submitted, matures monday. 04/28: remains attenuated manic focused on housing concerns. would like to DC monday. encourage to take mood stabilizer. 3-day notice matures monday. Reason for continued inpatient stay Substantial Risk for: rapid decompensation Time Spent With Patient Time: Total time managing care of this patient today __25__ minutes.
[2023-04-28] MEDS: QUEtiapine Fumarate 300 MG TABLET 600 MG PO (22:45)
[2023-04-29 08:00] VITALS: BP 127/86; PULSE 98; TEMP 36.2; O2SAT 98
[2023-04-29] MEDS: methADONE HCl 20 MG/2 ML ORAL.CONC 40 MG PO (08:15)
[2023-04-29] MEDS: Gabapentin 400 MG CAPSULE 800 MG PO ×2 (08:16→21:05)
[2023-04-29] MEDS: Acetaminophen 325 MG TABLET 650 MG PO (08:17)
[2023-04-29] MEDS: Nicotine 21 MG PATCH.TD24 TRANSDERMA (10:43)
[2023-04-29] MEDS: diphenhydrAMINE HCL 25 MG CAPSULE 50 MG PO (12:44)
--- NOTE | 2023-04-29 14:09 | P.PNPSI_ITS ---
Subjective Subjective Date of Service: 04/29/23 Reason For Visit: Opiate cocaine use d/o schizoaffective disorder bi Subjective Notes: Conditional Voluntary Healthcare Proxy: No Guardianship: No Interim History: Patient was seen and discussed in rounds today. Records and plans were reviewed. He has a very slight rash in his right thigh and is requesting calamine lotion which I ordered. He continues to be religiously preoccupied. Responding to internal stimuli. Has been taking medications selectively, refuse gabapentin. He is isolative. He is safe and mostly medication compliant. No other changes were made Review of Systems Review of Systems Rash on right thigh Yes all other systems are reviewed and are negative Mental Status Exam Mental Status Exam Narrative: In today's visit he is alert, pleasant and interactive. Normal speech. Moderate eye contact. Affect is constricted. No acute signs of psychosis but is reported to be religiously preoccupied, tangential and responding to internal stimuli. No SI. Cognitively is intact. Judgment is intact Diagnostics Vital Signs (24Hr): Vital Signs - 24 hr 04/29/23 08:00 Temperature 97.2 F Pulse Rate 98 Blood Pressure 127/86 Pulse Oximetry 98 Oxygen Delivery Method Room Air BMI result Body Mass Index 30.1 Labs 04/22/23 09:25 04/21/23 14:03 Imaging Radiology Impressions: ITS Impressions Chest X-Ray 04/21/23 17:13 IMPRESSION: * Clear lungs. Medications Medications Current Medications Acetaminophen (Acetaminophen 325 Mg Tablet) 650 mg PO Q6H PRN PRN Reason: pain, fever Last Admin: 04/29/23 08:17 Dose: 650 mg Al Hydroxide/Mg Hydroxide (Magnesium Hydrox/Alum Hydrox 30 Ml Oral.Susp) 30 ml PO Q6H PRN PRN Reason: Heartburn/Nausea Calamine (Calamine/Zinc Oxide Lotion 177 Ml Bottle) 1 appl TOPICAL ONCE ONE; Protocol Stop: 04/29/23 14:08 Clonidine HCl (Clonidine Hcl 0.1 Mg Tablet) 0.1 mg PO Q4H PRN; Protocol PRN Reason: withdrawal symptoms Last Admin: 04/26/23 21:27 Dose: 0.1 mg Diphenhydramine HCl (Diphenhydramine Hcl 25 Mg Capsule) 50 mg PO Q6H PRN PRN Reason: allergies Last Admin: 04/29/23 12:44 Dose: 50 mg Gabapentin (Gabapentin 400 Mg Capsule) 800 mg PO TID [facility] Last Admin: 04/29/23 08:16 Dose: 800 mg Guaifenesin/Dextromethorphan (Guaifenesin Dm 600/30 1 Tab Tab.Er.12h) 1 tab PO BID PRN PRN Reason: cough/congestion Last Admin: 04/25/23 18:28 Dose: 1 tab Magnesium Hydroxide (Milk Of Magnesia 30 Ml Oral.Susp) 30 ml PO DAILY PRN PRN Reason: Constipation Methadone HCl (Methadone Hcl 20 Mg/2 Ml Oral.Conc) 40 mg PO DAILY [facility] Last Admin: 04/29/23 08:15 Dose: 40 mg Nicotine (Nicotine 21 Mg Patch.Td24) 21 mg TRANSDERMA DAILY PRN PRN Reason: smoking cessation Last Admin: 04/29/23 10:43 Dose: 21 mg Nicotine Polacrilex (Nicotine Polacrilex 2 Mg Gum) 4 mg BUCCAL Q2H PRN PRN Reason: nicotine cravings Last Admin: 04/26/23 00:18 Dose: 4 mg Quetiapine Fumarate (Quetiapine Fumarate 300 Mg Tablet) 600 mg PO BEDTIME [facility] Last Admin: 04/28/23 22:45 Dose: 600 mg Trazodone HCl (Trazodone Hcl 50 Mg Tablet) 50 mg PO BEDTIME PRN PRN Reason: Insomnia Ziprasidone (Ziprasidone 20 Mg Capsule) 20 mg PO BID PRN PRN Reason: agitation Allergies Allergies Allergy/AdvReac Type Severity Reaction Status Date / Time cat dander [CATS] Allergy Unknown UNKNOWN Verified 04/23/23 20:53 haloperidol [From HALDOL] Allergy Unknown UNKNOWN Verified 04/23/23 20:53 olanzapine [From ZYPREXA] Allergy Unknown UNKNOWN Verified 04/23/23 20:53 Penicillins [PENICILLINS] Allergy Unknown UNKNOWN Verified 04/23/23 20:53 Assessment & Plan Assessment & Plan (1) Cocaine use disorder, moderate, dependence: Status: Acute Code(s): F14.20 - Cocaine dependence, uncomplicated (2) Opioid use disorder, moderate, dependence: Status: Acute Code(s): F11.20 - Opioid dependence, uncomplicated (3) Schizoaffective disorder, bipolar type: Status: Chronic Code(s): F25.0 - Schizoaffective disorder, bipolar type Plan 04/26: increase seroquel 100/100/300 to 600 mg QHS, per pt request. DC trileptal, per pt request (and as a [id number] mood stabilizer). increase methadone from 30 mg daily to 40 mg daily per pt request. 04/27: appears more pressured and tangential than yesterday. declines evidence- based mood stabilizer. states he is sleeping adequately. interested in help with housing. 3-day submitted, matures monday. 04/28: remains attenuated manic focused on housing concerns. would like to DC monday. encourage to take mood stabilizer. 3-day notice matures monday. 04/29: Continue current plans and regimen Reason for continued inpatient stay Substantial Risk for: med/psych decompensation Time Spent With Patient Time: Total time managing care of this patient today ____ minutes.
[2023-04-29] MEDS: QUEtiapine Fumarate 300 MG TABLET 600 MG PO (21:05)
[2023-04-30 07:47] VITALS: BP 140/84; PULSE 106; TEMP 36.6; O2SAT 100
[2023-04-30] MEDS: Nicotine 21 MG PATCH.TD24 TRANSDERMA (08:05)
[2023-04-30] MEDS: methADONE HCl 20 MG/2 ML ORAL.CONC 40 MG PO (08:06)
[2023-04-30] MEDS: Gabapentin 400 MG CAPSULE 800 MG PO (08:07)
--- NOTE | 2023-04-30 11:39 | HO.PSYCHPN ---
Subjective Subjective Date of Service: 04/30/23 Reason For Visit: Opiate cocaine use d/o schizoaffective disorder bi Subjective Notes: Conditional Voluntary Healthcare Proxy: No Guardianship: No Interim History: Patient was seen and discussed in rounds today. Records and plans were reviewed. He states that the calamine lotion has been helpful with his rash which is less uncomfortable and decreased. Eating and sleeping adequately. He continues to be responding to internal stimuli and religiously preoccupied. He is isolative and mostly in bed and still guarded. No other complaints today. No changes were made today Review of Systems Review of Systems rash Yes all other systems are reviewed and are negative Mental Status Exam Mental Status Exam Narrative: In today's visit he is alert, pleasant and interactive. Normal speech. Moderate eye contact. Affect is constricted. No acute signs of psychosis but is reported to be religiously preoccupied, tangential and responding to internal stimuli. No SI. Cognitively is intact. Judgment is intact Diagnostics Vital Signs (24Hr): Vital Signs - 24 hr 04/30/23 07:47 Temperature 97.9 F Pulse Rate 106 H Blood Pressure 140/84 H Pulse Oximetry 100 Oxygen Delivery Method Room Air BMI result Body Mass Index 30.1 Labs 04/22/23 09:25 04/21/23 14:03 Imaging Radiology Impressions: ITS Impressions Chest X-Ray 04/21/23 17:13 IMPRESSION: * Clear lungs. Medications Medications Current Medications Acetaminophen (Acetaminophen 325 Mg Tablet) 650 mg PO Q6H PRN PRN Reason: pain, fever Last Admin: 04/29/23 08:17 Dose: 650 mg Al Hydroxide/Mg Hydroxide (Magnesium Hydrox/Alum Hydrox 30 Ml Oral.Susp) 30 ml PO Q6H PRN PRN Reason: Heartburn/Nausea Calamine (Calamine/Zinc Oxide Lotion 177 Ml Bottle) 1 appl TOPICAL DAILY PRN; Protocol PRN Reason: Itching Clonidine HCl (Clonidine Hcl 0.1 Mg Tablet) 0.1 mg PO Q4H PRN; Protocol PRN Reason: withdrawal symptoms Last Admin: 04/26/23 21:27 Dose: 0.1 mg Diphenhydramine HCl (Diphenhydramine Hcl 25 Mg Capsule) 50 mg PO Q6H PRN PRN Reason: allergies Last Admin: 04/29/23 12:44 Dose: 50 mg Gabapentin (Gabapentin 400 Mg Capsule) 800 mg PO TID [facility] Last Admin: 04/30/23 08:07 Dose: 800 mg Guaifenesin/Dextromethorphan (Guaifenesin Dm 600/30 1 Tab Tab.Er.12h) 1 tab PO BID PRN PRN Reason: cough/congestion Last Admin: 04/25/23 18:28 Dose: 1 tab Magnesium Hydroxide (Milk Of Magnesia 30 Ml Oral.Susp) 30 ml PO DAILY PRN PRN Reason: Constipation Methadone HCl (Methadone Hcl 20 Mg/2 Ml Oral.Conc) 40 mg PO DAILY [facility] Last Admin: 04/30/23 08:06 Dose: 40 mg Nicotine (Nicotine 21 Mg Patch.Td24) 21 mg TRANSDERMA DAILY PRN PRN Reason: smoking cessation Last Admin: 04/30/23 08:05 Dose: 21 mg Nicotine Polacrilex (Nicotine Polacrilex 2 Mg Gum) 4 mg BUCCAL Q2H PRN PRN Reason: nicotine cravings Last Admin: 04/26/23 00:18 Dose: 4 mg Quetiapine Fumarate (Quetiapine Fumarate 300 Mg Tablet) 600 mg PO BEDTIME [facility] Last Admin: 04/29/23 21:05 Dose: 600 mg Trazodone HCl (Trazodone Hcl 50 Mg Tablet) 50 mg PO BEDTIME PRN PRN Reason: Insomnia Ziprasidone (Ziprasidone 20 Mg Capsule) 20 mg PO BID PRN PRN Reason: agitation Allergies Allergies Allergy/AdvReac Type Severity Reaction Status Date / Time cat dander [CATS] Allergy Unknown UNKNOWN Verified 04/23/23 20:53 haloperidol [From HALDOL] Allergy Unknown UNKNOWN Verified 04/23/23 20:53 olanzapine [From ZYPREXA] Allergy Unknown UNKNOWN Verified 04/23/23 20:53 Penicillins [PENICILLINS] Allergy Unknown UNKNOWN Verified 04/23/23 20:53 Assessment & Plan Assessment & Plan (1) Cocaine use disorder, moderate, dependence: Status: Acute Code(s): F14.20 - Cocaine dependence, uncomplicated (2) Opioid use disorder, moderate, dependence: Status: Acute Code(s): F11.20 - Opioid dependence, uncomplicated (3) Schizoaffective disorder, bipolar type: Status: Chronic Code(s): F25.0 - Schizoaffective disorder, bipolar type Plan 04/26: increase seroquel 100/100/300 to 600 mg QHS, per pt request. DC trileptal, per pt request (and as a [id number] mood stabilizer). increase methadone from 30 mg daily to 40 mg daily per pt request. 04/27: appears more pressured and tangential than yesterday. declines evidence-based mood stabilizer. states he is sleeping adequately. interested in help with housing. 3-day submitted, matures monday. 04/28: remains attenuated manic focused on housing concerns. would like to DC monday. encourage to take mood stabilizer. 3-day notice matures monday. 04/29: Continue current plans and regimen 04/30: Continue current plans and regimen Reason for continued inpatient stay Substantial Risk for: med/psych decompensation Time Spent With Patient Time: Total time managing care of this patient today ____ minutes.
[2023-04-30 22:10] VITALS: RESP 18
[2023-04-30] MEDS: QUEtiapine Fumarate 300 MG TABLET 600 MG PO (22:53)
[2023-05-01 08:03] VITALS: BP 140/88; PULSE 104; RESP 18; TEMP 36.4; O2SAT 99
[2023-05-01] MEDS: Acetaminophen 325 MG TABLET 650 MG PO (08:06)
[2023-05-01] MEDS: methADONE HCl 20 MG/2 ML ORAL.CONC 40 MG PO (08:08)
[2023-05-01] MEDS: Calamine/Zinc Oxide LOTION 177 ML BOTTLE 1 APPL TOPICAL (12:01)
--- NOTE | 2023-05-01 14:30 | P.PNPSI_ITS ---
Subjective Subjective Date of Service: 05/01/23 Reason For Visit: Opiate cocaine use d/o schizoaffective disorder bi Subjective Notes: 3 Day Healthcare Proxy: No Guardianship: No Interim History: Patient less agitated somewhat expansive has pact program will be picked up tomorrow has 3 day notice. Has not been threatening or aggressive no thoughts to harm himself or others unrealistic expectation he is managed in the community Mental Status Exam Mental Status Exam Narrative: In today's visit he is alert, pleasant and interactive. Somewhat pressured speech good eye contact mood somewhat anxious expansive. No gross delusional material elicited. States he will take his medication at discharge No SI. Cognitively is intact. Judgment improved somewhat unclear expectations Diagnostics Vital Signs (24Hr): Vital Signs - 24 hr 04/30/23 22:10 05/01/23 08:03 Temperature 97.6 F Pulse Rate 104 H Respiratory Rate 18 18 Blood Pressure 140/88 H Pulse Oximetry 99 Oxygen Delivery Method Room Air BMI result Body Mass Index 30.1 Labs 04/22/23 09:25 04/21/23 14:03 Imaging Radiology Impressions: ITS Impressions Chest X-Ray 04/21/23 17:13 IMPRESSION: * Clear lungs. Medications Medications Current Medications Acetaminophen (Acetaminophen 325 Mg Tablet) 650 mg PO Q6H PRN PRN Reason: pain, fever Last Admin: 05/01/23 08:06 Dose: 650 mg Al Hydroxide/Mg Hydroxide (Magnesium Hydrox/Alum Hydrox 30 Ml Oral.Susp) 30 ml PO Q6H PRN PRN Reason: Heartburn/Nausea Calamine (Calamine/Zinc Oxide Lotion 177 Ml Bottle) 1 appl TOPICAL DAILY PRN; Protocol PRN Reason: Itching Last Admin: 05/01/23 12:01 Dose: 1 appl Clonidine HCl (Clonidine Hcl 0.1 Mg Tablet) 0.1 mg PO Q4H PRN; Protocol PRN Reason: withdrawal symptoms Last Admin: 04/26/23 21:27 Dose: 0.1 mg Diphenhydramine HCl (Diphenhydramine Hcl 25 Mg Capsule) 50 mg PO Q6H PRN PRN Reason: allergies Last Admin: 04/29/23 12:44 Dose: 50 mg Gabapentin (Gabapentin 400 Mg Capsule) 800 mg PO TID AMOR Last Admin: 05/01/23 09:48 Dose: Not Given Guaifenesin/Dextromethorphan (Guaifenesin Dm 600/30 1 Tab Tab.Er.12h) 1 tab PO BID PRN PRN Reason: cough/congestion Last Admin: 04/25/23 18:28 Dose: 1 tab Magnesium Hydroxide (Milk Of Magnesia 30 Ml Oral.Susp) 30 ml PO DAILY PRN PRN Reason: Constipation Methadone HCl (Methadone Hcl 20 Mg/2 Ml Oral.Conc) 40 mg PO DAILY AMOR Last Admin: 05/01/23 08:08 Dose: 40 mg Nicotine (Nicotine 21 Mg Patch.Td24) 21 mg TRANSDERMA DAILY PRN PRN Reason: smoking cessation Last Admin: 04/30/23 08:05 Dose: 21 mg Nicotine Polacrilex (Nicotine Polacrilex 2 Mg Gum) 4 mg BUCCAL Q2H PRN PRN Reason: nicotine cravings Last Admin: 04/26/23 00:18 Dose: 4 mg Quetiapine Fumarate (Quetiapine Fumarate 300 Mg Tablet) 600 mg PO BEDTIME AMOR Last Admin: 04/30/23 22:53 Dose: 600 mg Trazodone HCl (Trazodone Hcl 50 Mg Tablet) 50 mg PO BEDTIME PRN PRN Reason: Insomnia Ziprasidone (Ziprasidone 20 Mg Capsule) 20 mg PO BID PRN PRN Reason: agitation Allergies Allergies Allergy/AdvReac Type Severity Reaction Status Date / Time cat dander [CATS] Allergy Unknown UNKNOWN Verified 04/23/23 20:53 haloperidol [From HALDOL] Allergy Unknown UNKNOWN Verified 04/23/23 20:53 olanzapine [From ZYPREXA] Allergy Unknown UNKNOWN Verified 04/23/23 20:53 Penicillins [PENICILLINS] Allergy Unknown UNKNOWN Verified 04/23/23 20:53 Assessment & Plan Assessment & Plan (1) Cocaine use disorder, moderate, dependence: Status: Acute Code(s): F14.20 - Cocaine dependence, uncomplicated (2) Opioid use disorder, moderate, dependence: Status: Acute Code(s): F11.20 - Opioid dependence, uncomplicated (3) Schizoaffective disorder, bipolar type: Status: Chronic Code(s): F25.0 - Schizoaffective disorder, bipolar type Plan 04/26: increase seroquel 100/100/300 to 600 mg QHS, per pt request. DC trileptal, per pt request (and as a [id number] mood stabilizer). increase methadone from 30 mg daily to 40 mg daily per pt request. 04/27: appears more pressured and tangential than yesterday. declines evidence- based mood stabilizer. states he is sleeping adequately. interested in help with housing. 3-day submitted, matures monday. 04/28: remains attenuated manic focused on housing concerns. would like to DC monday. encourage to take mood stabilizer. 3-day notice matures monday. 04/29: Continue current plans and regimen 04/30: Continue current plans and regimen 05/01 Discharge tomorrow patient will be managed in the community by the pact team does not meet criteria for involuntary treatment Reason for continued inpatient stay Substantial Risk for: inability to function and rapid decompensation Time Spent With Patient Time: Total time managing care of this patient today ____ minutes.
[2023-05-01] MEDS: QUEtiapine Fumarate 300 MG TABLET 600 MG PO (21:47)
[2023-05-01 21:48] VITALS: BP 136/72; PULSE 71; RESP 18; TEMP 36.4; O2SAT 97
[2023-05-02] MEDS: Magnesium Hydrox/Alum Hydrox 30 ML ORAL.SUSP PO (07:24)
[2023-05-02] MEDS: methADONE HCl 20 MG/2 ML ORAL.CONC 40 MG PO (08:09)
[2023-05-02 08:17] VITALS: BP 155/90; PULSE 85; RESP 18; TEMP 36.7; O2SAT 100
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
== END 2023-05-02 11:30 | disposition home or self-care (01) | DRG 750 ==
LOC: HO.ED 19:33 → HO.PM5 04-25 13:19 → HO.PADLT16 04-25 23:52
PROVIDERS: Clinical Nurse Specialist Psychiatric/Mental Health, Adult; Emergency Medicine; Internal Medicine; Physician Assistant Medical; Admitting Provider Psychiatry & Neurology Psychiatry; Emergency Provider Emergency Medicine; Visit Provider Psychiatry & Neurology Psychiatry
DX: F25.0 Schizoaffective disorder, bipolar type (principal); Z91.148 Patient's other noncompliance with medication regimen for other reason; F11.20 Opioid dependence, uncomplicated; F14.20 Cocaine dependence, uncomplicated; F17.210 Nicotine dependence, cigarettes, uncomplicated; Z71.6 Tobacco abuse counseling; Z79.899 Other long term (current) drug therapy
CPT/HCPCS: 36415; 71045; 80053; 80061; 80143; 80179; 80307; 81003; 82607; 82746; 83036; 83735; 84439; 84443; 85025; 87040; 87635; 93005; 99285; S9485

== ENCOUNTER → 2023-04-21 14:33 | Outpatient (BNV) | payer OTHER, SELFPAY | PROVIDERS: Emergency Provider Emergency Medicine; Visit Provider Social Worker | DX: F25.0 Schizoaffective disorder, bipolar type (principal); F14.20 Cocaine dependence, uncomplicated; F11.20 Opioid dependence, uncomplicated | CPT/HCPCS: 99231; 99233; 99285 ==

== ENCOUNTER 2023-04-25 12:30 | Outpatient (BNV) | payer MEDICAID, SELFPAY | END 2023-04-25 15:08 | PROVIDERS: Admitting Provider Psychiatry & Neurology Psychiatry; Emergency Provider Emergency Medicine; Visit Provider Internal Medicine Cardiovascular Disease | DX: R94.31 Abnormal electrocardiogram [ECG] [EKG] (principal); F25.0 Schizoaffective disorder, bipolar type; R00.1 Bradycardia, unspecified | CPT/HCPCS: 93010 ==

== ENCOUNTER → 2023-04-25 12:30 | Outpatient (BNV) | payer OTHER, SELFPAY | PROVIDERS: Admitting Provider Psychiatry & Neurology Psychiatry; Emergency Provider Emergency Medicine; Visit Provider Psychiatry & Neurology Psychiatry | DX: F25.0 Schizoaffective disorder, bipolar type (principal); F14.20 Cocaine dependence, uncomplicated; F11.20 Opioid dependence, uncomplicated | CPT/HCPCS: 99231 ==